=== PATIENT | female | born 1970 | race Caucasian/White ===

== ENCOUNTER 2025-02-01 16:03 | Emergency (ER) | payer BC, OTHER, SELFPAY ==
--- OUTSIDE RECORDS SUMMARY | 2014-05-06 04:39 | XMS_ITS | Continuity of Care Document ---
Author Organization [facility] Address [address] [address] [place] [address] Phone Care Team Providers Care Lab Tester Name Role Phone Link Thor PETERS Unavailable Unavailable Advance Directives Directive Yes / No Effective Date File Name No Information Encounters Encounter Description Practice Location Reason(s) For Visit Diagnoses Date Provider Providers Copied on Encounter [facility], [address] [address], [place], [place], [id number], [place] tel:[phone] [facility] No Information 4 Link MD Mcrae. [address] [facility], [facility] [address], [place], [place], [id number] , [place]. tel:[phone] Referring Provider: [place], [address] [place], [address]. tel:[phone] Family History Family Member Type Diagnosis Age At Onset No Information Payers Payer name Insurance type Covered green party ID Authoriza tion(s) No Information Social History Type Description Quantity Date Captured Comments Sex Female Smoking Status No Information Chief Complaint And Reason For Visit No Information Reason For Referral Reason For Referral No Information History Of Present Illness Encounter Date Complaint History Of Prese nt Illness No Information Functional Status Date Functional Assessmen t No Information Instructions Date Instruction Additional Infor mation No Information Assessments Type Assessment Date No Information Patient Care Teams Name Effective Dates (start - stop) Status Members No Information
--- OUTSIDE RECORDS SUMMARY | 2014-05-06 04:39 | XMS_ITS | Continuity of Care Document ---
Author Organization [facility] Address [address] [address] [place] [address] Phone Care Team Providers Care Salvage Laborer Name Role Phone Link Thor PETERS Unavailable Unavailable Advance Directives Directive Yes / No Effective Date File Name No Information Encounters Encounter Description Practice Location Reason(s) For Visit Diagnoses Date Provider Providers Copied on Encounter [facility], [address] [address], [place], [place], [id number], [place] tel:[phone] [facility] No Information 4 Link MD Mcrae. [address] [facility], [facility] [address], [place], [place], [id number] , [place]. tel:[phone] Referring Provider: [place], [address] [place], [address]. tel:[phone] Family History Family Member Type Diagnosis Age [...]
--- OUTSIDE RECORDS SUMMARY | 2025-02-01 16:05 | XMS_ITS | Encounter Summary ---
Author Organization [facility] Address [address] [place] [address] Care Team Providers Care Veneer Lathe Operator Name Role Phone Jack Romano PA-C Primary Care Provider [phone] Jack Romano PA-C Unavailable [phone] Liana Turner PA-C Unavailable [phone] Ryland Mora DO Unavailable [phone] Liana Turner PA-C Unavailable [phone] Encounter Details Date Type Department Care Team (Late st Contact Info) Description 01/25/2022 [facility] [address] [place] [address] Jack Romano PA-C [address] [place] [address] Social History Tobacco Use Types Packs/Day Years Used Date Smoking Tobacco: Light Smoker Cigarettes 0.5 4 Started: 013; Last attempted to quit: 07/13/2016 Smokeless Tobacco: Former Quit: 06/20/2012 Comments:i am using quit susan n Alcohol Use Standard Drinks/Week Comments Not Currently 0 (1 standard drink = 0.6 oz pur e alcohol) 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 Unable to assess 12/31/2021 11:31 PM CDT documented as of this encounter Miscellaneous Notes * Telephone Encounter - Araseli Santiago RN - 01/26/2022 10:30 AM CDT Answered through other Araseli Donnelly RN documented in this encounter Plan of Treatment Not on file documented as of this encounter Visit Diagnoses Not on filedocumented in this encounter Additional Health Concerns Infection Onset Date Last Indicated Resolved Time COVID-19 01/25/2022 01/26/2022 02/15/2022 11:4 1 PM CDT Assessment Noted Time PHQ-9 Depression Total Score: 0 09/15/19 22 7:02 AM CDT documented as of this encounter Care Teams Veneer Lathe Operator Relationship Specialty Start Date End Date Jack Romano PA-C [address] [facility] [address] PCP - General Physician Fruit And Vegetable Packer - Medical 07/25/18 Jack Romano PA-C 38676 [facility] [address] Assigned PCP 04/18/21 Liana Turner PA-C [address] [place] [place] [address] Physician Fruit And Vegetable Packer 07/17/24 [place] [address] [address]Z, [address] [address] Assigned Musculoskeletal Provider 08/25/24 Liana Turner PA-C [address] [place] [address] Assigned Dermatology Provider 09/25/24 documented as of this encounter
--- OUTSIDE RECORDS SUMMARY | 2025-02-01 16:05 | XMS_ITS | Encounter Summary ---
Author Organization [facility] Address [address] [place] [address] Care Team Providers Care Radius Corner Machine Operator Name Role Phone Jack Romano PA-C Primary Care Provider [phone] Jack Romano PA-C Unavailable [phone] Jack Romano-Joby Unavailable [phone] Marisol Rodriguez RN Unavailable Unavailable Jack Romano-C Unavailable [phone] Jack Romano-C Unavailable [phone] Liana Turner PA-C Unavailable [phone] Ryland Mora DO Unavailable [phone] Liana Turner PA-C Unavailable [phone] Reason for Visit * Reason Onset Date Comments Patient/info Update 10/09/2018 f/u colonosc opy Encounter Details Date Type Department Care Team (Late st Contact Info) Description 10/09/2018 [facility] Medical Advice [address], [address] [place] [address] Jack Romano PA-C [address] [place] [address] Patient/info Update (f/u colonoscopy) Social History Tobacco Use Types Packs/Day Years Used Date Smoking Tobacco: Former Cigarettes 0.5 4 0 07/13/2012 - 07/13/2016 Smokeless Tobacco: Former Quit: 06/20/2012 Comments:smokes one a day Alcohol Use Standard Drinks/Week Comments Yes 0 (1 standard drink = 0.6 oz pur e alcohol) occ PHQ-2 Answer Date Recorded PHQ-2 Score 0 06/12/2018 Comments No Sex and Gender Information Value Date Recorded Sex Assigned at Female 11/12/2020 12:43 PM CDT Legal Sex Female 3:44 AM TEST DESK TROUBLE LOCATOR Gender Identity Female 11/12/2020 12:43 PM CDT Sexual Orientation Straight 11/12/2020 12 :43 PM CDT documented as of this encounter Miscellaneous Notes * Telephone Encounter - Jennyfer Quijano RN - 11/02/2018 8:48 AM CDT PHQ-9 SCORE 03/22/2017 11/21/2017 06/15/2018 PHQ-9 Total Score - - - PHQ-9 Total Score 2 0 1 PT called completely out of medication, recent physical, labs stable, and has been without for a day. Prescription approved per [facility] Refill Protocol. Jennyfer Quijano RN documented in this encounter Plan of Treatment Not on file documented as of this encounter Visit Diagnoses Diagnosis Major depressive disorder, recurrent episode, mild documented in this encounter Additional Health Concerns Infection Onset Date Last Indicated Resolved Time COVID-19 01/25/2022 01/26/2022 02/15/2022 11:4 1 PM CDT Assessment Noted Time PHQ-9 Depression Total Score: 1 06/15/19 9:50 AM TEST DESK TROUBLE LOCATOR documented as of this encounter Care Teams Radius Corner Machine Operator Relationship Specialty Start Date End Date Jack Romano PA-C [address] [facility] [address] [address] PCP - General Physician Director Home - Medical 07/25/18 Jack Romano PA-C 49386 [facility] [address] Assigned PCP 07/29/18 12/21/19 Jack Romano PA-C 28449 [facility] [address] Assigned PCP 12/22/19 03/20/21 Marisol Rodriguez RN Personal Advocate & Liaison (PAL) Family Practice 03/13/20 06/10/20 Jack Romano PA-C 25302 [facility] [address] Assigned PCP 03/21/21 04/17/21 Jack Romano PA-C 45523 [facility] [address] Assigned PCP 04/18/21 Liana Turner PA-C [address] [place] [address] Physician Director Home 07/17/24 [place] [address] [address]WARTZ, [address] [address] Assigned Musculoskeletal Provider 08/25/24 Liana Turner PA-C [address] [place] [address] Assigned Dermatology Provider 09/25/24 documented as of this encounter
--- OUTSIDE RECORDS SUMMARY | 2025-02-01 16:05 | XMS_ITS | Encounter Summary ---
Author Organization [facility] Address [address] [place] [address] Care Team Providers Care Php Web Developer Name Role Phone Jack Romano PA-C Primary Care Provider [phone] Jack Romano PA-C Unavailable [phone] Liana Turner PA-C Unavailable [phone] Ryland Mora DO Unavailable [phone] Liana Turner PA-C Unavailable [phone] Encounter Details Date Type Department Care Team (Late st Contact Info) Description 09/13/2021 [facility] Medical Advice [address] [address] Maureen Almaguer MA Social History Tobacco Use Types Packs/Day Years [...] PM CDT 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 Gender Identity Female 11/12/2020 12:43 PM CDT Sexual Orientation Straight 11/12/2020 12 :43 PM CDT Occupation Industry Job Start Date Job End Date Not on file Not on file Not on file Not on file documented as of this encounter Plan of Treatment Not on file documented as of this encounter Visit Diagnoses Not on filedocumented in this encounter Additional Health Concerns Infection Onset Date Last Indicated Resolved Time COVID-19 01/25/2022 01/26/2022 02/15/2022 11:4 1 PM CDT Assessment Noted Time PHQ-9 Depression Total Score: 0 09/15/19 7:02 AM CDT documented as of this encounter Care Teams Php Web Developer Relationship Specialty Start Date End Date Jack Romano PA-C [address] [facility] [place] [address] PCP - General Physician Staff Air Tactical Officer - Medical 07/25/18 Jack Romano PA-C [address] [place] [address] Assigned PCP 04/18/21 Liana Turner PA-C [address] [place] [address] Physician Staff Air Tactical Officer 07/17/24 [place] [address] [address]WARTZ, [address] [address] Assigned Musculoskeletal Provider 08/25/24 Liana Turner PA-C [address] [place] [address] Assigned Dermatology Provider 09/25/24 documented as of this encounter
--- OUTSIDE RECORDS SUMMARY | 2025-02-01 16:05 | XMS_ITS | Encounter Summary ---
Author Organization [facility] Address [address] [place] [address] Care Team Providers Care Wrapper Layer Name Role Phone Jack Romano PA-C Primary Care Provider [phone] Jack Romano PA-C Unavailable [phone] Jack Romano PA-C Unavailable [phone] Marisol Rodriguez RN Unavailable Unavailable Jack Romano PA-C Unavailable [phone] Jack Romano PA-C Unavailable [phone] Liana Turner PA-C Unavailable [phone] Ryland Mora DO Unavailable [phone] Liana Turner PA-C Unavailable [phone] Encounter Details Date Type Department Care Team (Late st Contact Info) Description 03/22/2019 [facility] Medical Advice [facility] Centralized Scheduling [address] [place] [address] Anna Kaufman Social History Tobacco Use Types Packs/Day Years [...] PM CDT Legal Sex Female 3:44 AM INTERNET DATABASE SPECIALIST Gender Identity Female 11/12/2020 12:43 PM CDT [...] Depression Total Score: 1 06/15/19 9:50 AM INTERNET DATABASE SPECIALIST documented as of this encounter Care Teams Wrapper Layer Relationship Specialty Start Date End Date Jack Romano PA-C [address] [facility] [address] PCP - General Physician Leadite Man - Medical 07/25/18 Jack Romano PA-C 02296 [facility] [id number] Assigned PCP 07/29/18 12/21/19 Jack Romano PA-C 81353 [facility] [address] Assigned PCP 12/22/19 03/20/21 Marisol Rodriguez, SERVANDO Personal Advocate & Liaison (PAL) Family Practice 03/13/20 06/10/20 Jack Romano PA-C 58117 [facility] [address] Assigned PCP 03/21/21 04/17/21 Jack Romano PA-C [address] [place] [address] Assigned PCP 04/18/21 Liana Turner PA-C [address] [place] [address] Physician Leadite Man 07/17/24 [place] [address] [address]WARTZ, [address] [address] Assigned Musculoskeletal Provider 08/25/24 Liana Turner PA-C [address] [place] [address] Assigned Dermatology Provider 09/25/24 documented as of this encounter
--- OUTSIDE RECORDS SUMMARY | 2025-02-01 16:05 | XMS_ITS | Encounter Summary ---
Author Organization [facility] Address [address] [place] [address] Care Team Providers Care Hostel Parent Name Role Phone Jack Romano PA-C Primary Care Provider [phone] Jack Romano PA-C Unavailable [phone] Jack Romano PA-C Unavailable [phone] Marisol Rodriguez RN Unavailable Unavailable Jack Romano-C Unavailable [phone] Jack RomnaoC Unavailable [phone] Liana Turner PA-C Unavailable [phone] Ryland Mora DO Unavailable [phone] Liana Turner PA-C Unavailable [phone] Encounter Details Date Type Department Care Team (Late st Contact Info) Description 12/24/2018 [facility] Medical Advice [address], [address] [place] [address] Jack Romano PA-C [address] [place] [address] Social History Tobacco Use Types [...] PM CDT 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 Gender Identity Female 11/12/2020 12:43 PM CDT Sexual Orientation Straight 11/12/2020 12 :43 PM CDT documented as of this encounter Plan of Treatment Not on file documented as of this encounter Visit Diagnoses Not on filedocumented in this encounter Additional Health Concerns Infection Onset Date Last Indicated Resolved Time COVID-19 01/25/2022 01/26/2022 02/15/2022 11:4 1 PM CDT Assessment Noted Time PHQ-9 Depression Total Score: 1 06/15/19 9:50 AM FRONT DESK SPECIALIST documented as of this encounter Care Teams Hostel Parent Relationship Specialty Start Date End Date Jack Romano PA-C [address] [facility] [address] PCP - General Physician Chuck Splitter - Medical 07/25/18 Jack Romano PA-C 15173 [facility] [address] Assigned PCP 07/29/18 12/21/19 Jack Romano PA-C 50287 [facility] [address] Assigned PCP 12/22/19 03/20/21 Marisol Rodriguez, SERVANDO Personal Advocate & Liaison (PAL) Family Practice 03/13/20 06/10/20 Jack Romano PA-C 77037 [facility] [address] Assigned PCP 03/21/21 04/17/21 Jack Romano PA-C [address] [place] [address] Assigned PCP 04/18/21 Liana Turner PA-C [address] [place] [address] Physician Chuck Splitter 07/17/24 [place] [address] [address]WARTZ, [address] [address] Assigned Musculoskeletal Provider 08/25/24 Liana Turner PA-C [address] [place] [address] Assigned Dermatology Provider 09/25/24 documented as of this encounter
--- OUTSIDE RECORDS SUMMARY | 2025-02-01 16:05 | XMS_ITS | Encounter Summary ---
Author Organization [facility] Address [address] [place] [address] Care Team Providers Care Shoe Turner Name Role Phone Jack Romano PA-C Primary Care Provider [phone] Jack Romano PA-C Unavailable [phone] Jack Romano PA-C Unavailable [phone] Marisol Rodriguez RN Unavailable Unavailable Jack Romano PA-C Unavailable [phone] Jack Romano PA-C Unavailable [phone] Liana Turner-C Unavailable [phone] Ryland Mora DO Unavailable [phone] Liana Turner-C Unavailable [phone] Reason for Visit * Reason Onset Date Comments Medication Request 03/11/2019 Increase Tiza nidine Encounter Details Date Type Department Care Team (Late st Contact Info) Description 03/11/2019 [facility] Medical [address], [address] [place] [address] Jack Romano PA-C [address] [place] [address] Medication Request (Increase Tizanidine) Social History Tobacco Use Types Packs/Day Years [...] PM CDT 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 documented in this encounter Plan of Treatment Not on file documented as of this encounter Visit Diagnoses Diagnosis Back muscle spasm- Primary Other symptoms referable to back documented in this encounter Additional Health Concerns Infection Onset Date Last Indicated Resolved Time COVID-19 01/25/2022 01/26/2022 02/15/2022 11:4 1 PM CDT Assessment Noted Time PHQ-9 Depression Total Score: 1 06/15/19 19 9:50 AM BUILDING CUSTODIAN documented as of this encounter Care Teams Shoe Turner Relationship Specialty Start Date End Date Jack Romano PA-C [address] [facility] [address] [address] [address] PCP - General Physician Conservator Artifacts - Medical 07/25/18 Jack Romano PA-C 21929 [facility] [address] Assigned PCP 07/29/18 12/21/19 Jack Romano PA-C [address] [address] [facility]EL[facility] [address] Assigned PCP 12/22/19 03/20/21 Marisol Rodriguez, RN Personal Advocate & Liaison (PAL) Family Practice 03/13/20 06/10/20 Jack Romano PA-C 71725 [facility] [address] Assigned PCP 03/21/21 04/17/21 Jack Romano PA-C 54991 [facility] [address] [address] Assigned PCP 04/18/21 Liana Turner PA-C [address] [place] [address] Physician Conservator Artifacts 07/17/24 [place] [address] [address]WARTZ, [address] [address] Assigned Musculoskeletal Provider 08/25/24 Liana Turner PA-C [address] [place] [address] Assigned Dermatology Provider 09/25/24 documented as of this encounter
--- OUTSIDE RECORDS SUMMARY | 2025-02-01 16:05 | XMS_ITS | Clinical Summary ---
Author Organization [facility] Address [address] [place] [address] Care Team Providers Care Turbine Engineer Name Role Phone Unavailable Primary Care Provider Unavailabl e Source Comments You are receiving this document as you are listed as the primary care provider,follow-up provider, or the patient has been referred to you for consultation.This is in compliance with the Medicare and[facility] EHR Incentive Program,which states Providers who transition their patient to another setting of careor provider of care or refers their patient to another provider of care shouldprovide summary care record for each transition of care or referral. [employer] Allergies Active Allergy Reactions Criticality Noted Date Comments Acetaminophen-Codeine Other, see comments 02/03 Morphine Other, see comments 06/14/2019 Burning sensation in abdomen Penicillins Hives 02/07/2010 Penicillins Hives High 06/14/2019 Medications Multiple Vitamin (MULTI-VITAMIN OR) Take by mouth. 3 Active naproxen sodium (AKA ANAPROX) 550 MG tablet Take 1 tablet by mouth 2 times daily (with meals). 30 tablet 0 4 Active Additional Information Patient not taking.Reported on 04/10/2020 MULTIPLE VITAMIN OR Active citalopram (CELEXA) 40 MG tablet Take 1 Tablet (40 mg) by mouth daily. Active cyclobenzaprine (FLEXERIL) 5 MG tabletIndicatio ns:RLQ abdominal pain Take 1-2 Tablets by mouth three times a day as needed for Muscle Spasms. 30 Tablet 0 Active Additional Information Patient not taking.Reported on 04/10/2020 cholecalciferol (VITAMIN D3) 1.25 MG (79501 UT) capsule Take 1 Capsule (50,000 Units) by mouth. 0 Active hydrOXYzine HCl (ATARAX) 25 MG tablet 0 Active tiZANidine (ZANAFLEX) 4 MG tablet Take 2 Tablets (8 mg) by mouth. 0 Active traZODone (DESYREL) 50 MG tablet Take 1 Tablet (50 mg) by mouth daily at bedtime. at bedtime 0 Active methylPREDNISol one (MEDROL 21 TABLET DOSEPACK) 4 MG tablet Follow package directions 21 Tablet 2 Active Additional Information Patient not taking.Reported on 03/21/2023 lisinopril (ZESTRIL) 20 MG tablet Take 1 Tablet (20 mg) by mouth. 1 Active methocarbamol (ROBAXIN) 500 MG tablet 1-2 tabs TID PRN for spasm/pain 24 Tablet 3 Active Active Problems Problem Noted Date Diagnosed Date Heart murmur 05/18/2022 Benign essential hypertension 03/31/2021 S/P appendectomy 03/31/2021 S/P gastric bypass 03/31/2021 S/P hysterectomy 03/31/2021 Internal hemorrhoid 08/16/2018 Major depressive disorder, recurrent episode, mi ld 03/27/2015 Over weight 12/19/2012 Thoracic back pain 12/19/2012 Thoracic disc herniation 08/21/2012 Anxiety 02/03/2006 Overview (03/21/2023): Problem list name updated by automated process. Provider to review Mixed hyperlipidemia 09/16/2005 Endometriosis 11/09/2002 Overview (01/25/2017): Endometriosis NOS Immunizations Immunization Administration Dates Next Due TDAP (BOOSTRIX) 12/19/2012 Family History Medical History Relation Name Comments High Blood Pressure Father Diabetes Maternal Grandfather High Blood Pressure Maternal Grandfather Diabetes Paternal Grandfather High Blood Pressure Paternal Grandfather Cancer Paternal Grandmother Relation Name Status Comments Father Alive Mother Alive Brother 1 Alive Brother 2 Alive Maternal Grandfather Paternal Grandfather Paternal Grandmother Sister 1 Alive Sister 2 Alive Social History Tobacco Use Types Packs/Day Years Used Date Smoking Tobacco: Some Days Smokeless Tobacco: Never Tobacco Cessation:Ready to Q uit: Not Asked; Counseling Given: Not Answered Comments:Smoking History Packs/day: Alcohol Use Standard Drinks/Week Comments Yes 0 (1 standard drink = 0.6 oz pur e alcohol) occ Comments No Sex and Gender Information Value Date Recorded Sex Assigned at Not on file Legal Sex Female 1:22 PM CDT Gender Identity Not on file Sexual Orientation Not on file 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 Not on file Not on file Last Filed Vital Signs Vital Sign Reading Time Taken Comments Blood Pressure 185/108 03/21/2023 4:56 PM CDT Pulse 69 03/21/2023 4:56 PM CDT Temperature 37 C (98.6 F) 03/21/2023 4:56 PM CDT Respiratory Rate 15 03/21/2023 4:56 PM CDT Oxygen Saturation 100% 03/21/2023 4:56 PM CDT Inhaled Oxygen Concentration - - Weight 72.1 kg (159 lb) 04/10/2020 3:45 PM PLATE FORMER Height 152.4 cm (5') 04/10/2020 3:45 PM PLATE FORMER Body Mass Index 31.05 04/10/2020 3:45 PM PLATE FORMER Plan of Treatment Health Maintenance Due Date Last Done Comments Colon Cancer Screening Plan Due 1972 Hep C Screening (Preventive Services) 1972 Mammogram 1972 HIV Screening (Preventive Services) 1988 Adult Preventive Visit 1990 HepB Vaccine (1) 08/21/1991 Pneumococcal Vaccine 50+ Yrs (1 of 2 - PCV) 08/21/1991 Cervical Cancer Screening Due 12/20/2012 12/19/2012 Cholesterol 12/19/2017 12/19/2012 Zoster/Shingles Vaccine (1 of 2) 2022 COVID-19 Vaccine ( season) 2024 06/14/2022, 04/14/2021, 09/10/2020 Influenza Vaccine (#1) 2025 2, 03/31/2021, 02/15/2020, Additional history exists DTaP/Tdap/Td Vaccine (4 - Tdap) 11/10/2026 11/10/2016, 12/19/2012, 09/16/2005 HepA Vaccine Aged Out No longer eligi ble based on patient's age to complete this topic Hib Vaccine Aged Out No longer eligi ble based on patient's age to complete this topic IPV (Polio) Vaccine Aged Out No longe r eligible based on patient's age to complete this topic MCV4 Vaccine Aged Out No longer eligi ble based on patient's age to complete this topic Meningococcal B Vaccine Aged Out No l onger eligible based on patient's age to complete this topic Procedures Procedure Name Priority Date/Time Associated Diagnosis Comments LIPID PANEL & DIRECT LDL (IF NEEDED) Routine 12/19/2012 9:47 AM CDT Routine physical examination ANATOMICAL PATH LIQUID BASED Routine 12/19/2012 9:23 AM CDT from Last 3 Months or Most Recently Relevant to Health Maintenance Results * Lipid Panel and Direct LDL(If Needed) (12/19/2012 9:47 AM CDT) Cholesterol 199 0 - 200 mg/dL HP CONVERSION Triglycerides 134 0 - 149 mg/dL HP CONVERSION HDL Cholesterol 66 >39 mg/dL HP CONVERSION Cholesterol/HDL Ratio Screen 3.0 HP CONVERSION LDL Calculated 106 19 - 130 mg/dL HP CONVERSION Hours Fasting 10 HP CONVERSION 12/19/2012 9:47 AM CDT 12/19/2012 10:38 AM CDT Narrative HP CONVERSION - 12/19/2012 11:02 AM CDT Performed at [facility], [address] [place] [address] us Christie Arango MD LAB_1 Final Result HP CONVERSION * Pap Smear (12/19/2012 9:23 AM CDT) 12/19/2012 9:23 AM CDT Narrative HP CONVERSION - 12/25/2012 2:00 PM CDT FINAL GYNECOLOGICAL CYTOLOGY REPORT Pathology #: [id number] Date Obtained: 12/19/2012 Date Received: 12/20/2012 INTERPRETATION/RESULTS: Negative for Intraepithelial Lesion or Malignancy SPECIMEN ADEQUACY: Satisfactory for Evaluation. No endocervical cells/transformation zone component present. Verified on 12/25/2012 by RAMONA PEDROZA(ASCP) (electronic signature) CLINICAL NOTES: LMP: Not Stated LIQUID BASED PAP SMEAR SPECIMEN TYPE: CERVICAL WITH REFLEX TO HPV IF ASCUS PLEASE NOTE: The pap smear is a screening test designed to aid in the detection of cervical cancer and its precursor lesions. It is not a diagnostic procedure and should not be used as the sole means of detecting cervical cancer. Both false-positive and false-negative reports may occur. End of Report Christie Arango MD LAB_1 Final Result HP CONVERSION from Last 3 Months or Most Recently Relevant to Health Maintenance Insurance [facility]
--- OUTSIDE RECORDS SUMMARY | 2025-02-01 16:05 | XMS_ITS | Encounter Summary ---
Author Organization [facility] Address [address] [facility] [place] [address] Care Team Providers Care Engraver Apprentice Decorative Name Role Phone Jack Romano PA-C Primary Care Provider [phone] Jack Romano PA-C Unavailable [phone] Liana Turner PA-C Unavailable [phone] Abby Ryland DO Unavailable [phone] Liana Turner PA-C Unavailable [phone] Reason for Visit * Reason Onset Date Comments Refill Request 07/12/2021 Encounter Details Date Type Department Care Team (Late st Contact Info) Description 07/12/2021 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 PHQ-2 Answer Date Recorded PHQ-2 Score 0 05/27/2021 Comments No Sex and Gender Information Value Date Recorded Sex Assigned at Female 11/12/2020 12:43 PM CDT Legal Sex Female 3:44 AM RETAIL MAINTENANCE TECHNICIAN Gender Identity Female 11/12/2020 12:43 PM CDT Sexual Orientation Straight 11/12/2020 12 :43 PM CDT Occupation Industry Job Start Date Job End Date Not on file Not on file Not on file Not on file documented as of this encounter Miscellaneous Notes * Telephone Encounter - Annabelle Ng RN - 07/12/2021 12:37 PM CST Outpatient Medication Detail Disp Refills Start End ANAI tiZANidine (ZANAFLEX) 4 MG tablet 270 tablet 1 07/12/2021 No Sig: TAKE 1 TABLET(4 MG) BY MOUTH THREE TIMES DAILY Sent to pharmacy as: tiZANidine HCl 4 MG Oral Tablet (ZANAFLEX) Class: E-Prescribe Order: [id number] E-Prescribing Status: Receipt confirmed by pharmacy (07/12/2021 11:58 AM RETAIL MAINTENANCE TECHNICIAN) Vito [place] MAINTENANCE TECHNICIAN documented in this encounter Plan of Treatment Not on file documented as of this encounter Visit Diagnoses Not on filedocumented in this encounter Additional Health Concerns Infection Onset Date Last Indicated Resolved Time COVID-19 01/25/2022 01/26/2022 02/15/2022 11:4 1 PM CDT Assessment Noted Time PHQ-9 Depression Total Score: 0 03/31/20 21 12:00 PM CDT documented as of this encounter Care Teams Engraver Apprentice Decorative Relationship Specialty Start Date End Date Jack Romano PA-C [address] [address] [place] [address] PCP - General Physician Disc Jockey - Medical 07/25/18 Jack Romano PA-C [address] [place] [address] Assigned PCP 04/18/21 Liana Turner PA-C [address] [place] [address] Physician Disc Jockey 07/17/24 [place] [address] [facility], [address] [address] Assigned Musculoskeletal Provider 08/25/24 Liana Turner PA-C [address] [place] [address] Assigned Dermatology Provider 09/25/24 documented as of this encounter
--- OUTSIDE RECORDS SUMMARY | 2025-02-01 16:05 | XMS_ITS | Encounter Summary ---
Author Organization [facility] Address [address] [place] [address] Care Team Providers Care Client Relations Specialist Name Role Phone Jack Romano PA-C Primary Care Provider [phone] Jack Romano PA-C Unavailable [phone] Jack Romano PA-C Unavailable [phone] Marisol Rodriguez RN Unavailable Unavailable Jack Romano PA-C Unavailable [phone] Jack Romano PA-C Unavailable [phone] Liana Turner PA-C Unavailable [phone] Ryland Mora DO Unavailable [phone] Liana Turner PA-C Unavailable [phone] Encounter Details Date Type Department Care Team (Late st Contact Info) Description 03/05/2019 [facility] [address] [facility] [place] [address] Cain Orellana MD [facility] [address] [place] [address] [address] [place] [address] Other iron deficiency anemia (Primary Dx) Social History Tobacco Use Types Packs/Day Years [...] PM CDT Legal Sex Female 3:44 AM CHLORINATOR OPERATOR Gender Identity Female 11/12/2020 12:43 PM CDT Sexual Orientation Straight 11/12/2020 12 :43 PM CDT Occupation Industry Job Start Date Job End Date Not on file Not on file Not on file Not on file documented as of this encounter Plan of Treatment Not on file documented as of this encounter Results * Iron and iron binding capacity (03/05/2019 11:46 AM CDT) Iron 92 35 - 180 ug/dL 03/05/2019 8:21 PM CDT [facility] Iron Binding Cap 335 240 - 430 ug/dL 03/05/2019 8:28 PM CDT [facility] Iron Saturation Index 27 15 - 46 % 03/05/2019 8:28 PM CDT [facility] Blood specimen (specimen) 03/05/2019 11:46 AM CDT 03/05/2019 11:47 AM CDT Cain Orellana MD LAB - BLOOD ORDERABLES Final Res ult Performing Organization Address [facility]/State/ZIP Co de Phone Number [facility] [address] [place] [address] * Ferritin (03/05/2019 11:46 AM CDT) Ferritin 148 8 - 252 ng/mL 03/05/2019 8:29 PM CDT [facility] Blood specimen (specimen) 03/05/2019 11:46 AM CDT 03/05/2019 11:47 AM CDT Cain Orellana MD LAB - BLOOD ORDERABLES Final Res ult [facility] [address] [place] [address] * CBC with platelets and differential (03/05/2019 11:46 AM CDT) WBC 7.4 4.0 - 11.0 10e9/L 03/05/2019 12:22 PM CDT [facility] RBC Count 4.36 3.8 - 5.2 10e12/L 03/05/2019 12:22 PM CDT [facility] Hemoglobin 14.0 11.7 - 15.7 g/dL 03/05/2019 12:22 PM CDT [facility] Hematocrit 43.5 35.0 - 47.0 % 03/05/2019 12:22 PM T [facility] MCV 100 78 - 100 fl 03/05/2019 12:22 PM CDT [facility] MCH 32.1 26.5 - 33.0 pg 03/05/2019 12:22 PM CDT [facility] MCHC 32.2 31.5 - 36.5 g/dL 03/05/2019 12:22 PM CDT [facility] RDW 12.3 10.0 - 15.0 % 03/05/2019 12:22 PM T [facility] Platelet Count 251 150 - 450 10e9/L 03/05/2019 12:22 PM T [facility] % Neutrophils 61.9 % 03/05/2019 12:22 PM CDT [facility] % Lymphocytes 26.3 % 03/05/2019 12:22 PM CDT [facility] % Monocytes 6.9 % 03/05/2019 12:22 PM CDT [facility] % Eosinophils 4.5 % 03/05/2019 12:22 PM CDT [facility] % Basophils 0.4 % 03/05/2019 12:22 PM CDT [facility] Absolute Neutrophil 4.6 1.6 - 8.3 10e9/L 03/05/2019 12:22 PM CDT [facility] Absolute Lymphocytes 1.9 0.8 - 5.3 10e9/L 03/05/2019 12:22 PM CDT [facility] Absolute Monocytes 0.5 0.0 - 1.3 10e9/L 03/05/2019 12:22 PM CDT [facility] Absolute Eosinophils 0.3 0.0 - 0.7 10e9/L 03/05/2019 12:22 PM CDT [facility] Absolute Basophils 0.0 0.0 - 0.2 10e9/L 03/05/2019 12:22 PM CDT [facility] Diff Method Automated Method 03/05/2019 12:22 PM CDT [facility] Blood specimen (specimen) 03/05/2019 11:46 AM CDT 03/05/2019 11:47 AM CDT us Cain Orellana MD LAB - BLOOD ORDERABLES Final Res ult Performing Organization Address City/State/[facility] Co de Phone Number [facility] [address] [facility] [place] [address] documented in this encounter Visit Diagnoses Diagnosis Other iron deficiency anemia- Primary documented in this encounter Additional Health Concerns Infection Onset Date Last Indicated Resolved Time COVID-19 01/25/2022 01/26/2022 02/15/2022 11:4 1 PM CDT Assessment Noted Time PHQ-9 Depression Total Score: 1 06/15/19 19 9:50 AM CHLORINATOR OPERATOR documented as of this encounter Care Teams Client Relations Specialist Relationship Specialty Start Date End Date Jack Romano PA-C [address] [place] [place] [address] PCP - General Physician Monument Stonecutter - Medical 07/25/18 Jcak Romano PA-C [address] [place] [address] Assigned PCP 07/29/18 12/21/19 Jack Romano PA-C [address] [place] [address] Assigned PCP 12/22/19 03/20/21 Marisol Rodriguez, RN Personal Advocate & Liaison (PAL) Family Practice 03/13/20 06/10/20 Jack Romano PA-C [address] [address] [facility] [address] Assigned PCP 03/21/21 04/17/21 Jack Romano PA-C [address] [facility] [address] Assigned PCP 04/18/21 Liana Turner PA-C [address] [place] [address] Physician Monument Stonecutter 07/17/24 [place] [address] [facility], [address] [address] Assigned Musculoskeletal Provider 08/25/24 Liana Turner PA-C [address] [place] [address] Assigned Dermatology Provider 09/25/24 documented as of this encounter
--- OUTSIDE RECORDS SUMMARY | 2025-02-01 16:05 | XMS_ITS | Encounter Summary ---
Author Organization [facility] Address [address] [place] [address] Care Team Providers Care Advisor Advocate Angel Co Founder Name Role Phone Jack Romano PA-C Primary Care Provider [phone] Jack Romano PA-C Unavailable [phone] Liana Turner PA-C Unavailable [phone] Ryland Mora DO Unavailable [phone] Liana Turner PA-C Unavailable [phone] Encounter Details Date Type Department Care Team (Late st Contact Info) Description 02/15/2022 [facility] Medical Advice [address] [address] Araseli Santiago RN Social History Tobacco Use Types Packs/Day Years Used Date Smoking Tobacco: Light Smoker Cigarettes 0.5 4 Started: 013; Last attempted to quit: 07/13/2016 Smokeless Tobacco: Former Quit: 06/20/2012 Comments:i am using quit susan n Alcohol Use Standard Drinks/Week Comments Not Currently 0 (1 standard drink = 0.6 oz pur e alcohol) 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 PHQ-2 Answer Date Recorded PHQ-2 Score 0 02/15/2022 Comments No Sex and Gender Information Value Date Recorded Sex Assigned at Female 11/12/2020 12:43 PM CDT 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 Gender Identity Female 11/12/2020 12:43 PM CDT [...] Noted Time PHQ-9 Depression Total Score: 0 02/16/20 2:09 PM CDT documented as of this encounter Care Teams Advisor Advocate Angel Co Founder Relationship Specialty Start Date End Date Jack Romano PA-C [address] [facility] [address] PCP - General Physician Dramatic Coach - Medical 07/25/18 Jack Romano PA-C [address] [place] [address] Assigned PCP 04/18/21 Liana Turner PA-C [address] [place] [address] Physician Dramatic Coach 07/17/24 [place] [address] [address] [address] Assigned Musculoskeletal Provider 08/25/24 Liana Turner PA-C [address] [place] [address] Assigned Dermatology Provider 09/25/24 documented as of this encounter
--- OUTSIDE RECORDS SUMMARY | 2025-02-01 16:05 | XMS_ITS | Encounter Summary ---
Author Organization [facility] Address [address] [place] [address] Care Team Providers Care Medical Imaging Director Name Role Phone Edson Patel MD Primary Care Provider [phone] Dolores Charles-C Primary Care Pr ovider [facility] Primary Care Provide r Brit Stovall LEAD PRESSER Unavailable [phone] Jack Romano PA-C Primary Care Provider [phone] Brit Stovall LEAD PRESSER Unavailable [phone] Jack Romano PA-C Unavailable [phone] Jack Romano PA-C Unavailable + Marisol Rodriguez RN Unavailable Unavailable Jack Romano-C Unavailable [phone] Jack RomanoC Unavailable [phone] Liana Turner-Joby Unavailable [phone] Ryland Mora DO Unavailable [phone] Liana Turner-C Unavailable [phone] Encounter Details Date Type Department Care Team (Late st Contact Info) Description 07/10/2012 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 Gender Identity Female 11/12/2020 12:43 PM CDT Sexual Orientation Straight 11/12/2020 12 :43 PM CDT documented as of this encounter Plan of Treatment Not on file documented as of this encounter Visit Diagnoses Not on filedocumented in this encounter Additional Health Concerns Infection Onset Date Last Indicated Resolved Time COVID-19 01/25/2022 01/26/2022 02/15/2022 11:4 1 PM CDT documented as of this encounter Care Teams Medical Imaging Director Relationship Specialty Start Date End Date Edson Patel MD PCP - General Family Practice 07/17/11 08/13/13 Dolores Charles PA-C [address] [place] [address] PCP - General Physician Wood Machine Carver 08/14/13 04/09/18 [facility] [address] [address] [place], [place] [id number] PCP - General 04/10/18 07/24/18 Brit Stovall LEAD PRESSER [place] [address] [place] [address] PCP - Assigned PCP 10/16/16 08/07/18 Jack Romano PA-C [address] [place] [address] PCP - General Physician Wood Machine Carver - Medical 07/25/18 Brit Stovall, LEAD PRESSER [address] [place] [address] Assigned PCP 10/16/16 08/18/18 Jack Romano PA-C [address] [place] [address] Assigned PCP 07/29/18 12/21/19 Jack Romano PA-C [address] [place] [address] Assigned PCP 12/22/19 03/20/21 Marisol Rodriguez, RN Personal Advocate & Liaison (PAL) Family Practice 03/13/20 06/10/20 Jack Romano PA-C [address] [place] [address] Assigned PCP 03/21/21 04/17/21 Jack Romano PA-C [address] [place] [address] Assigned PCP 04/18/21 Liana Turner PA-C [address] [place] [address] Physician Wood Machine Carver 07/17/24 [place] [address] [place] , [address] [address] Assigned Musculoskeletal Provider 08/25/24 Liana Turner PA-C [address] [address] Assigned Dermatology Provider 09/25/24 documented as of this encounter
--- OUTSIDE RECORDS SUMMARY | 2025-02-01 16:06 | XMS_ITS | Clinical Summary ---
Author Organization [facility] Address [address] [place] [address] Care Team Providers Care Development And Planning Engineer Name Role Phone Jack Romano PA-C Primary Care Provider [phone] Jack Romano PA-C Unavailable [phone] Liana Turner PA-C Unavailable [phone] AbbyRyland sheridan Unavailable Liana Turenr PA-C Unavailable [phone] Allergies Active Allergy Reactions Criticality Noted Date Comments Acetaminophen-Codeine Other (See Comments) 06/2014 Adhesive Tape Rash Low 07/25/2018 Codeine 03/31/2021 Burning in stomach and hives Morphine Other (See Comments) 06/14/2019 Burning sensation in abdomen Penicillins Hives,Shortness Of Breath High 03/03/2004 Lungs fill with fluid Medications DAILY MULTI VITAMIN/MINERALS OR TABS 1 TABLET DAILY Active lidocaine (XYLOCAINE) 2 % external gelIndications:Vag inal pain Apply topically 2 times daily 30 mL 1 2 Active tiZANidine (ZANAFLEX) 4 MG tabletIndications: Back muscle spasm TAKE ONE TABLET BY MOUTH THREE TIMES A DAY 270 tablet 1 4 Active citalopram (CELEXA) 40 MG tabletIndications: Major depressive disorder, recurrent episode, mild Take 1 tablet (40 mg) by mouth daily. 90 tablet 3 5 Active valACYclovir (VALTREX) 500 MG tabletIndications: Herpes simplex virus infection Take 1 tablet (500 mg) by mouth every morning. 90 tablet 3 5 Active acyclovir (ZOVIRAX) 5 % external ointmentIndication s:Herpes simplex virus infection Apply topically 5 times daily. Profile Rx: patient will contact pharmacy when needed 30 g 5 Active lidocaine (XYLOCAINE) 5 % external ointmentIndication s:Herpes simplex virus infection Apply topically as needed for moderate pain. 50 g 1 5 Active traZODone (DESYREL) 50 MG tabletIndications: Insomnia, unspecified type Take 1 tablet (50 mg) by mouth at bedtime. 90 tablet 5 Active lisinopril (ZESTRIL) 20 MG tabletIndications: Benign essential hypertension TAKE ONE TABLET BY MOUTH EVERY MORNING 90 tablet 1 5 Active diclofenac (VOLTAREN) 75 MG EC tabletIndications: Cervical radiculopathy Take 1 tablet (75 mg) by mouth 2 times daily. 20 tablet 5 Active predniSONE (DELTASONE) 20 MG tabletIndications: Lumbar pain Take 3 tabs by mouth daily x 3 days, then 2 tabs daily x 3 days, then 1 tab daily x 3 days, then 1/2 tab daily x 3 days. 20 tablet 5 Active cyclobenzaprine (FLEXERIL) 10 MG tabletIndications: Back muscle spasm Take 0.5-1 tablets (5-10 mg) by mouth 3 times daily as needed for muscle spasms. 30 tablet 5 Active Active Problems Problem Noted Date Diagnosed Date FH: ovarian cancer in first degree relative 06/07 Postmenopause 07/04/2023 Heart murmur 05/18/2022 Carpal tunnel syndrome 03/31/2021 History of colonoscopy 03/31/2021 Benign essential hypertension 03/31/2021 Lumbar strain 03/31/2021 S/P appendectomy 03/31/2021 S/P hysterectomy 03/31/2021 S/P gastric bypass 03/31/2021 Insomnia, unspecified type 10/02/2019 Internal hemorrhoid 08/16/2018 Iron deficiency anemia, unsp ecified iron deficiency anemia type 08/16/2018 Major depressive disorder, recurrent episode, mi ld 03/27/2015 Colitis 04/28/2014 Overweight 12/19/2012 Thoracic disc herniation 08/21/2012 Thoracic radiculopathy 08/21/2012 CARDIOVASCULAR SCREENING; LDL GOAL LESS THAN 160 09/13/2010 Bariatric surgery status 08/01/2007 Anxiety 02/03/2006 Overview (03/05/2015): Problem list name updated by automated process. Provider to review Mixed hyperlipidemia 09/16/2005 Endometriosis 11/09/2002 Overview (03/31/2021): Endometriosis NOS Resolved Problems Problem Noted Date Diagnosed Date Resolved Date Mild major depression 09/17/20122014 Pain in thoracic spine 09/05/201210/10 Encounters Date Type Department Care Team Description 01/09/[address] [facility] [address] [place] [address] Yokasta Moser 01/09/[address] [facility] [address] [place] [address] Jack Romano PA-C 12/17/2024 11:00 AM CDT Office Visit [facility] [address] [facility] [address] [place] [address] Joseph Khan MD Back muscle spasm 12/17/2024 9:00 AM CDT E[facility] [address] [place] [address] Jack Romano PA-C Back Pain (Entered automatically based on ... 12/17/2024 Travel 12/12/2024 1:00 PM CDT Virtual Visit [facility] [address] [address] Yi Briggs PA-C Cervical radiculopathy (Primary Dx) 12/03/2024 Refill [facility] [address] [place] [phone] Jack Romano PA-C Medication Refill 12/03/2024 Refill [facility] [address] [place] [phone] Nellie Mai, MENTAL HEALTH UNIT LEAD PSYCHOLOGIST MUNITIONS HANDLER SUPERVISOR Medication Refill from Last 3 Months Immunizations Immunization Administration Dates Next Due COVID-19 Monovalent 18+ (Moderna) 04/14/2021 Influenza (IIV3) PF 04/01/2012 Influenza Vaccine (Flucelvax Quadrivalent) 02/17/2022 Influenza Vaccine >6 months,quad, PF ,02/17/2022,03/31/2021,2019,02/08/2019,07/25/2018,04/26/2017,0 02/25/2016 TD,PF 7+ (Tenivac) 09/16/2005,09/27/2001, 994 TDAP (Adacel,Boostrix) 09/16/2005 TDAP Vaccine (Adacel) 11/10/2016 TDAP Vaccine (Boostrix) 12/19/2012 Family History Medical History Relation Comments Cerebrovascular Disease Father Diabetes Father Hypertension Father Diabetes Maternal Grandfather Heart Disease Maternal Grandmother heart attac k Hypertension Maternal Grandmother Cancer Mother cervical cancer Family History Negative Mother Other Cancer Mother Ovarian Diabetes Paternal Grandfather Heart Disease Paternal Grandfather heart attac k Cancer Paternal Grandmother brain cance r Relation Status Comments Brother 1 Alive Brother 2 Alive Father Alive Maternal Grandfather Maternal Grandmother Mother Alive Paternal Grandfather Paternal Grandmother Sister 1 Alive Sister 2 Alive Social History Tobacco Use Types Packs/Day Years Used Date Smoking Tobacco: Former Cigarettes 0.5 26.1 0 06/05/1990 - 07/13/2016 Other Passive Smoke Exposure: Never Smokeless Tobacco: Former Quit: 06/20/2012 Tobacco Cessation:Counseling Given: Not Answered Comments:i am using quit plan Alcohol Use Standard Drinks/Week Comments Not Currently 0 (1 standard drink = 0.6 oz pur e alcohol) 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 Patient declined 07/08/2024 Attends Taoism Services Not on file 07/08 Active Member of Clubs or Organizations Not on f ile 07/08/2024 Attends Club or Organization Meetings Not on jessica e 07/08/2024 Marital Status Not on file 07/08/2024 PHQ-2 Answer Date Recorded PHQ-2 Score 0 12/17/2024 [facility] - Occupational Stress Questionnaire Answer Date Recorded Do you feel stress - tense, restless, nervous, or anxious, or unable to sleep at night because your mind is troubled all the time - these days? Not at all 07/08/2024 Exercise Vital Sign Answer Date Recorde d On average, how many days pe r week do you engage in moderate to strenuous exercise (like a brisk walk)? 2 days 07/08/2024 On average, how many minutes do you engage in exercise at this level? 20 min 07/08/2024 Adolescent Education Answer Date Record ed Getting School Help Needed Not on file 02/24 Food Insecurity Answer Date Recorded Within the past 12 months, d id you worry that your food would run out before you got money to buy more? No 07/08/2024 Within the past 12 months, d id the food you bought just not last and you didn t have money to get more? No 07/08/2024 Housing Stability Answer Date Recorded Do you have housing? (Cole g is defined as stable permanent housing and does not include staying outside in a car, in a tent, in an abandoned building, in an overnight alf, or couch-surfing.) Yes 07/08/2024 Are you worried about losing your housing? No 07/08/2024 Financial Resource Strain Answer Date R ecorded Within the past 12 months, h ave you or your family members you live with been unable to get utilities (heat, electricity) when it was really needed? No 07/08/2024 Transportation Needs Answer Date Record ed Within the past 12 months, h as lack of transportation kept you from medical appointments, getting your medicines, non-medical meetings or appointments, work, or from getting things that you need? No 07/08/2024 Interpersonal Safety Answer Date Record ed Do you feel physically and e motionally safe where you currently live? Yes 07/11/2024 Within the past 12 months, h ave you been hit, slapped, kicked or otherwise physically hurt by someone? No 07/11/2024 Within the past 12 months, h ave you been humiliated or emotionally abused in other ways by your partner or ex-partner? No 07/11/2024 Comments No Sex and Gender Information Value Date Recorded Sex Assigned at Female 11/12/2020 12:43 PM CDT Legal Sex Female 3:44 AM TOOLROOM ATTENDANT Gender Identity Female 11/12/2020 12:43 PM CDT Sexual Orientation Straight 11/12/2020 12 :43 PM CDT Occupation Industry Job Start Date Job End Date Not on file Not on file Not on file Not on file Last Filed Vital Signs Vital Sign Reading Time Taken Comments Blood Pressure 142/89 12/17/2024 10:51 AM CDT Pulse 71 12/17/2024 10:46 AM CDT Temperature 36.3 C (97.4 F) 12/17/2024 10:46 AM CDT Respiratory Rate 18 12/17/2024 10:46 AM CDT Oxygen Saturation 99% 12/17/2024 10:46 AM CDT Inhaled Oxygen Concentration - - Weight 71.2 kg (157 lb) 12/17/2024 10:46 AM CDT Height 148.6 cm (4' 10.5) 12/17/2024 10:46 AM C DT Body Mass Index 32.25 12/17/2024 10:46 AM CDT Plan of Treatment Health Maintenance Due Date Last Done Comments CT COLONOGRAPHY 1972 FIT 1972 FLEX SIG 1972 sDNA (Cologuard) 1972 LUNG CANCER SCREENING 2022 PNEUMOCOCCAL VACCINE 50+ YEARS (1 of 1 - PCV) 2022 ZOSTER VACCINE (1 of 2) 2022 COVID-19 VACCINE (5 - season) 2024 04/28/2023, 06/14/2022, 04/14/2021, Additional history exists INFLUENZA VACCINE (#1) 2025 , 04/28/2023, 02/17/2022, Additional history exists LIPID 04/16/2025 04/16/2024, 01/2022, 04/13/2021, Additional history exists ANNUAL REVIEW OF HM ORDERS 06/18/202506/18, 07/04/2023, 05/18/2022, Additional history exists PHQ-9 06/19/2025 12/17/2024, 11/2024, 06/18/2024, Additional history exists BMP 07/11/2025 07/11/2024, 06/07, 05/12/2022, Additional history exists YEARLY PREVENTIVE VISIT 07/11/2025 07/11/19 25, 07/04/2023, 05/18/2022, Additional history exists MAMMO SCREENING 07/23/2026 07/23/2024, 10/03, 04/12/2021, Additional history exists DTAP/TDAP/TD VACCINE (6 - Td or Tdap) 11/10/2026 11/10/2016, 12/19/2012, 09/16/2005, Additional history exists DIABETES SCREENING 07/11/2027 07/11/2024, 0 07/04/2023, 07/04/2023, Additional history exists COLONOSCOPY 10/08/2028 10/08/2018 COLORECTAL CANCER SCREENING 10/08/2028 ADVANCE CARE PLANNING 07/11/2029 07/11/2024, 022 HIV SCREENING Completed 08/26/1992 DEPRESSION ACTION PLAN Completed 8, 09/20/2016, 01/08/2015, Additional history exists HEPATITIS B VACCINE Discontinued HEPATITIS C SCREENING Discontinued HPV VACCINE (No Doses Required) Completed MENINGITIS VACCINE Aged Out No longer eligible based on patient's age to complete this topic PAP Discontinued Procedures Procedure Name Priority Date/Time Associated Diagnosis Comments MA SCREENING BILATERAL W/ ARISTIDES Routine 07/23/2024 4:21 PM TOOLROOM ATTENDANT Visit for screening mammogram BASIC METABOLIC PANEL Routine 07/11/2024 10:36 AM TOOLROOM ATTENDANT Benign essential hypertension LIPID REFLEX TO DIRECT LDL PANEL Routine 04/16/2024 4:10 PM TOOLROOM ATTENDANT Mixed hyperlipidemia COLONOSCOPY - HIM SCAN 10/08/2018 12:00 AM CDT from Last 3 Months or Most Recently Relevant to Health Maintenance Results * MA Screen Bilateral w/Aristides (07/23/2024 4:21 PM TOOLROOM ATTENDANT) Anatomical Region Laterality Modality Breast Bilateral Mammography Impressions 07/24/2024 7:35 AM TOOLROOM ATTENDANT IMPRESSION: ACR BI-RADS Category 1: Negative BREAST CANCER SCREENING RECOMMENDATION: Routine yearly mammography beginning at age 40 or as discussed with your provider. The results and recommendations of this examination will be communicated to the patient. Germain Benavides MD Narrative 07/24/2024 7:35 AM TOOLROOM ATTENDANT BILATERAL FULL FIELD DIGITAL SCREENING MAMMOGRAM WITH TOMOSYNTHESIS Performed on: 07/23/24 Compared to: 10/14/2022, 04/12/2021, and 03/28/2020 Technique: This study was evaluated with the assistance of Computer-Aided Detection. Breast Tomosynthesis was used in interpretation. Findings: There are scattered areas of fibroglandular density. There is no radiographic evidence of malignancy. us Jack Romano PA-C IM MAMMOGRAPHY ORDERABLES Final Result * BASIC METABOLIC PANEL (07/11/2024 10:36 AM TOOLROOM ATTENDANT) Sodium 142 135 - 145 mmol/L 07/11/2024 6:33 PM TOOLROOM ATTENDANT [facility] Potassium 4.7 3.4 - 5.3 mmol/L 07/11/2024 6:33 PM TOOLROOM ATTENDANT [facility] Chloride 104 98 - 107 mmol/L 07/11/2024 6:33 PM TOOLROOM ATTENDANT [facility] Carbon Dioxide (CO2) 25 22 - 29 mmol/L 07/11/2024 6:33 PM TOOLROOM ATTENDANT [facility] Anion Gap 13 7 - 15 mmol/L 07/11/2024 6:33 PM TOOLROOM ATTENDANT [facility] Urea Nitrogen 6.4 6.0 - 20.0 mg/dL 07/11/2024 6:33 PM TOOLROOM ATTENDANT [facility] Creatinine 0.73 0.51 - 0.95 mg/dL 07/11/2024 6:33 PM TOOLROOM ATTENDANT [facility] GFR Estimate >90 >60 mL/min/1.7 3m2 07/11/2024 6:33 PM TOOLROOM ATTENDANT [facility] Comment:eGFR calculated us2020 CKD-EPI equation. Calcium 9.3 8.8 - 10.4 mg/dL 07/11/2024 6:33 PM TOOLROOM ATTENDANT [facility] Glucose 94 70 - 99 mg/dL 07/11/2024 6:33 PM TOOLROOM ATTENDANT [facility] Blood BLOOD SPECIMEN / Unknown Venipuncture / Unknown 07/11/2024 10:36 AM TOOLROOM ATTENDANT 07/11/2024 10:36 AM TOOLROOM ATTENDANT us Jack Romano PA-C LAB - BLOOD ORDERABLES Aileen rodriguez Result [facility] [place] [facility] [address] [facility], [address] [id number] * (ABNORMAL) Lipid panel reflex to direct LDL Non-fasting (04/16/2024 4:10 PM TOOLROOM ATTENDANT) Cholesterol 240(H) <200 mg/dL 04/16/2024 10:08 PM TOOLROOM ATTENDANT [facility] Triglycerides 254(H) <150 mg/dL 04/16/2024 10:08 PM TOOLROOM ATTENDANT [facility] Direct Measure HDL 72 >=50 mg/dL 04/16/2024 10:08 PM TOOLROOM ATTENDANT [facility] LDL Cholesterol Calculated 117(H) <100 mg/dL 04/16/2024 10:08 PM TOOLROOM ATTENDANT [facility] Non HDL Cholesterol 168(H) <130 mg/dL 04/16/2024 10:08 PM TOOLROOM ATTENDANT [facility] Patient Fasting > 8hrs? Unknown 04/16/2024 10:08 PM TOOLROOM ATTENDANT [facility] Blood BLOOD SPECIMEN / Unknown Venipuncture / Unknown 04/16/2024 4:10 PM TOOLROOM ATTENDANT 04/16/2024 4:13 PM TOOLROOM ATTENDANT Narrative [facility] - 04/16/2024 10:08 PM TOOLROOM ATTENDANT Cholesterol Desirable: < 200 mg/dL Borderline High: 200 - 239 mg/dL High: >= 240 mg/dL Triglycerides Normal: < 150 mg/dL Borderline High: 150 - 199 mg/dL High: 200-499 mg/dL Very High: >= 500 mg/dL Direct Measure HDL Female: >= 50 mg/dL Male: >= 40 mg/dL LDL Cholesterol Desirable: < 100 mg/dL Above Desirable: 100 - 129 mg/dL Borderline High: 130 - 159 mg/dL High: 160 - 189 mg/dL Very High: >= 190 mg/dL Non HDL Cholesterol Desirable: < 130 mg/dL Above Desirable: 130 - 159 mg/dL Borderline High: 160 - 189 mg/dL High: 190 - 219 mg/dL Very High: >= 220 mg/dL us Jack Romano PA-C LAB - BLOOD ORDERABLES Aileen rodriguez Result [facility]ORATORY [facility] Lab [address] [facility], [address] [place] [address] * COLONOSCOPY - HIM SCAN (10/08/2018 12:00 AM CDT) 10/08/2018 us Provider Outside PROCEDURES Final Result from Last 3 Months or Most Recently Relevant to Health Maintenance Insurance [facility] CHO[facility] BCBS OF [place] [facility] CHO[facility] Advance Directives For more information, please contact: [phone] * Full Code (Latest Code Status on File) Date Activated Date Inactivated Comments 04/29/2014 12:06 PM 08/16/2018 2:58 PM * Full Code Date Activated Date Inactivated Comments 04/28/2014 6:43 PM 04/29/2014 12:06 PM * No Code Status Date Activated Date Inactivated Comments 02/13/2004 1:28 PM 02/13/2004 1:28 PM Care Teams Development And Planning Engineer Relationship Specialty Start Date End Date Jack Romano PA-C [address] [place] [address] PCP - General Physician Bridge Construction Inspector - Medical 07/25/18 Jack Romano PA-C [address] [place] [address] Assigned PCP 04/18/21 Liana Turner PA-C [address] [place] [id number] Physician Bridge Construction Inspector 07/17/24 [place] [address] [address] Assigned Musculoskeletal Provider 08/25/24 Liana Turner PA-C [address] [place] [id number] Assigned Dermatology Provider 09/25/24
--- OUTSIDE RECORDS SUMMARY | 2025-02-01 16:06 | XMS_ITS | Encounter Summary ---
Author Organization [facility] Address [address] [place] [address] Care Team Providers Care Gas Processing Plant Operator Name Role Phone Jack Romano PA-C Primary Care Provider [phone] Jack Romano PA-C Unavailable [phone] Jack Romano PA-C Unavailable [phone] Jack Romano PA-C Unavailable [phone] Liana Turner PA-C Unavailable [phone] Ryland Mora DO Unavailable [phone] Liana Turner PA-C Unavailable [phone] Encounter Details Date Type Department Care Team (Late st Contact Info) Description 10/23/2020 [facility] [place] [address] [address] Annabelle Ng RN Social History Tobacco Use Types Packs/Day Years Used Date Smoking Tobacco: Light Smoker Cigarettes 0.5 4 Started: 013; Last attempted to quit: 07/13/2016 Smokeless Tobacco: Former Quit: 06/20/2012 Comments:i am using quit susan n Alcohol Use Standard Drinks/Week Comments Not Currently 0 (1 standard drink = 0.6 oz pur e alcohol) 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 PHQ-2 Answer Date Recorded PHQ-2 Total Score (Adult) - Positive if 3 or more points; Administer PHQ-9 if positive 0 10/26/2020 Comments No Sex and Gender Information Value Date Recorded Sex Assigned at Female 11/12/2020 12:43 PM CDT Legal Sex Female 3:44 AM CREDIT UNION TELLER Gender Identity Female 11/12/2020 12:43 PM CDT [...] Noted Time PHQ-9 Depression Total Score: 0 10/28/19 7:03 AM CDT documented as of this encounter Care Teams Gas Processing Plant Operator Relationship Specialty Start Date End Date Jack Romano PA-C [address] [place] [address] PCP - General Physician Deadener - Medical 07/25/18 Jack Romano PA-C [address] [place] [address] Assigned PCP 12/22/19 03/20/21 Jack Romano PA-C [address] [place] [address] Assigned PCP 03/21/21 04/17/21 Jack Romano PA-C [address] [place] [address] Assigned PCP 04/18/21 Liana Turner PA-C [address] [place] [address] Physician Deadener 07/17/24 [place] [address] [address] Assigned Musculoskeletal Provider 08/25/24 Liana Turner PA-C [address] [address] Assigned Dermatology Provider 09/25/24 documented as of this encounter
--- OUTSIDE RECORDS SUMMARY | 2025-02-01 16:06 | XMS_ITS | Encounter Summary ---
Author Organization [facility] Address [facility] [place] [address] Care Team Providers Care Chemical Blender Name Role Phone Teofilo Adam MD Primary Care Provider Dolores CharlesC Primary Care Pr ovider Edson Patel MD Primary Care Provider [phone] Dolores Charles-C Primary Care Pr ovider [facility] Primary Care Provide r Brit Stovall CULINARY ARTS INSTRUCTOR Unavailable [phone] Jack Romano PA-C Primary Care Provider [phone] Brit Stovall CULINARY ARTS INSTRUCTOR Unavailable [phone] Jack Romano PA-C Unavailable + Jack Romano PA-C Unavailable + Marisol Rodriguez RN Unavailable Unavailable Jack Romano PA-C Unavailable + Jack Romano PA-C Unavailable + Liana Turner PA-C Unavailable [phone] Ryland Mora DO Unavailable [phone] Liana Turner PA-C Unavailable Encounter Details Date Type Department Care Team (Late st Contact Info) Description 08/09/[address] [address] [place] [address] Emergency (Primary Dx) Social History Tobacco Use Types Packs/Day Years Used Date Smoking Tobacco: Former Cigarettes 0.5 26.1 0 06/05/1990 - 07/13/2016 Other Passive Smoke Exposure: Never Smokeless Tobacco: Former Quit: 06/20/2012 Comments:i am using quit susan n Alcohol Use Standard Drinks/Week Comments Not Currently 0 (1 standard drink = 0.6 oz pur e alcohol) 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 Comments No Sex and Gender Information Value Date Recorded Sex Assigned at Female 11/12/2020 12:43 PM CDT Legal Sex Female 3:44 AM BUSINESS ANALYSIS ANALYST Gender Identity Female 11/12/2020 12:43 PM CDT Sexual Orientation Straight 11/12/2020 12 :43 PM CDT Occupation Industry Job Start Date Job End Date Not on file Not on file Not on file Not on file documented as of this encounter Plan of Treatment Not on file documented as of this encounter Visit Diagnoses Diagnosis Emergency- Primary documented in this encounter Additional Health Concerns Infection Onset Date Last Indicated Resolved Time COVID-19 01/25/2022 01/26/2022 02/15/2022 11:4 1 PM CDT documented as of this encounter Care Teams Chemical Blender Relationship Specialty Start Date End Date [place] [address] PCP - General 03/02/04 02/27/11 Dolores Charles PA-C [address] [place] [address] PCP - General Family Practice 02/28/11 07/16/11 [place] [address] [place] [address] PCP - General Family Practice 07/17/11 08/13/13 Dolores Charles PA-C [address] [place] [address] PCP - General Physician Assistant Manager Bilingual 08/14/13 04/09/[address] [address] PCP - General 04/10/18 07/24/18 Brit Stovall NP [address] [place] [address] PCP - Assigned PCP 10/16/16 08/07/18 Jack Romano PA-C [address] [place] [address] PCP - General Physician Assistant Manager Bilingual - Medical 07/25/18 Brit Stovall NP [address] [place] [address] Assigned PCP 10/16/16 08/18/18 Jack Romano PA-C [address] [place] [address] Assigned PCP 07/29/18 12/21/19 Jack Romano PA-C [address] [place] [address] Assigned PCP 12/22/19 03/20/21 Marisol Rodriguez, RN Personal Advocate & Liaison (PAL) Family Practice 03/13/20 06/10/20 Jack Romano PA-C [address] [place] [address] Assigned PCP 03/21/21 04/17/21 Jack Romano PA-C [address] [place] [address] Assigned PCP 04/18/21 Liana Turner PA-C [address] [place] [address] Physician Assistant Manager Bilingual 07/17/24 [place] [address] [address], [address] [address] Assigned Musculoskeletal Provider 08/25/24 Liana Turner PA-C [address] [place] [address] Assigned Dermatology Provider 09/25/24 documented as of this encounter
--- OUTSIDE RECORDS SUMMARY | 2025-02-01 16:06 | XMS_ITS | Encounter Summary ---
Author Organization [place] Address [address] [facility] [place] [address] Care Team Providers Care Head Well Puller Name Role Phone Jack Romano-Joby Primary Care Provider [phone] Jack Romano-Joby Unavailable [phone] Jack Romano-C Unavailable [phone] Jack Romano-C Unavailable [phone] Liana Turner-C Unavailable [phone] Ryland Mora DO Unavailable [phone] Liana Turner PA-C Unavailable [phone] Reason for Visit * Reason Onset Date Comments Medication Refill 09/14/2020 tiZANidine (ZA NAFLEX) 4 MG tablet Encounter Details Date Type Department Care Team (Late st Contact Info) Description 09/13/2020 Refill [facility] [address] [place] [address] Aracelis Chow APRN CNP [address] [place] [address] Medication Refill (tiZANidine (ZANAFLEX) 4 MG tablet) Social History Tobacco Use Types Packs/Day Years Used Date Smoking Tobacco: Light Smoker Cigarettes 0.5 4 Started: 013; Last attempted to quit: 07/13/2016 Smokeless Tobacco: Former Quit: 06/20/2012 Comments:i am using quit susan n Alcohol Use Standard Drinks/Week Comments Not Currently 0 (1 standard drink = 0.6 oz pur e alcohol) 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 Updated in chart and correct dose filled. * Telephone Encounter - Annabelle Ng RN - 09/14/2020 11:24 AM CDT tiZANidine (ZANAFLEX) 4 MG tablet Last Written Prescription Date: 08/28/2020 Last Fill Quantity: 60, # refills: 0 Last Office Visit: 03/19/2020 Future Office visit: Routing refill request to provider for review/approval because: Drug not on the [facility], [facility] or [facility] refill protocol or controlled substance. Annabelle Ng RN documented in this encounter Plan of Treatment Not on file documented as of this encounter Visit Diagnoses Diagnosis Back muscle spasm Other symptoms referable to back documented in this encounter Additional Health Concerns Infection Onset Date Last Indicated Resolved Time COVID-19 01/25/2022 01/26/2022 02/15/2022 11:4 1 PM CDT Assessment Noted Time PHQ-9 Depression Total Score: 5 03/19/20 20 2:07 PM CDT documented as of this encounter Care Teams Head Well Puller Relationship Specialty Start Date End Date Jack Romano PA-C [address] [place] [address] PCP - General Physician Subgrade Tester - Medical 07/25/18 Jack Romano PA-C [address] [place] [address] Assigned PCP 12/22/19 03/20/21 Jack Romano PA-C 13361 [place] [address] Assigned PCP 03/21/21 04/17/21 Jack Romano PA-C 77395 [place] [address] Assigned PCP 04/18/21 Liana Turner PA-C [address] [place] [address] 934400 Physician Subgrade Tester 07/17/24 [place] [address] [address], [address] [address] Assigned Musculoskeletal Provider 08/25/24 Liana Turner PA-C [address] [place] [address] 745090 Assigned Dermatology Provider 09/25/24 documented as of this encounter
--- OUTSIDE RECORDS SUMMARY | 2025-02-01 16:06 | XMS_ITS | Encounter Summary ---
Author Organization [place] Address [address] [facility] [place] [address] Care Team Providers Care Change Analyst Name Role Phone Jack Romano PA-C Primary Care Provider [phone] Jack Romano PA-C Unavailable [phone] Jack Romano-Joby Unavailable [phone] Liana Turner PA-C Unavailable [phone] Ryland Mora DO Unavailable [phone] Liana Turner PA-C Unavailable [phone] Encounter Details Date Type Department Care Team (Late st Contact Info) Description 03/23/2021 [facility] [place] Medical Advice [facility] [address] [place] [address] Jack Romano PA-C [address] [place] [address] Social History Tobacco Use Types [...] PM CDT 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 No / Unsure 03/22/2021 4:03 PM CDT documented as of this encounter Miscellaneous Notes * Telephone Encounter - Shadia Mariano RN - 03/23/2021 11:43 AM CDT Will forward to Jack Romano. See other mychart of 03/23/2021. documented in this encounter Plan of Treatment Not on file documented as of this encounter Visit Diagnoses Not on filedocumented in this encounter Additional Health Concerns Infection Onset Date Last Indicated Resolved Time COVID-19 01/25/2022 01/26/2022 02/15/2022 11:4 1 PM CDT Assessment Noted Time PHQ-9 Depression Total Score: 0 10/28/19 7:03 AM CDT documented as of this encounter Care Teams Change Analyst Relationship Specialty Start Date End Date Jack Romano PA-C [address] [address] [address] PCP - General Physician Reproductive Surgeon - Medical 07/25/18 Jack Romano PA-C [address] [place] [address] Assigned PCP 03/21/21 04/17/21 Jack Romano PA-C [address] [place] [address] Assigned PCP 04/18/21 Liana Turner PA-C [address] [place] [address] Physician Reproductive Surgeon 07/17/24 [place] [address] [address], [address] [address] Assigned Musculoskeletal Provider 08/25/24 Liana Turner PA-C [address] [place] [address] Assigned Dermatology Provider 09/25/24 documented as of this encounter
--- OUTSIDE RECORDS SUMMARY | 2025-02-01 16:06 | XMS_ITS | Encounter Summary ---
Author Organization [place] Address [address] [place] [address]. [place] [address] Care Team Providers Care Lead Laying And Gluing Machine Operator Name Role Phone Jack Romano PA-C Primary Care Provider [phone] Jack Romano PA-C Unavailable [phone] Marisol Rodriguez RN Unavailable Unavailable Jack Romano PA-C Unavailable [phone] Jack Romano PA-C Unavailable [phone] Liana Turner-Joby Unavailable [phone] Ryland Mroa DO Unavailable [phone] Liana Turner-C Unavailable [phone] Reason for Visit * Reason Comments Medication Refill Encounter Details Date Type Department Care Team (Late st Contact Info) Description 04/12/[address] [phone] Jack Romano PA-C [address] [place] [address] Medication Refill Social History Tobacco Use Types Packs/Day Years [...] PM CDT 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 No / Unsure 03/19/2020 1:55 PM CDT documented as of this encounter Miscellaneous Notes * Telephone Encounter - Chantell Paul RN - 04/13/2020 11:36 AM PROCESS ENVIRONMENTAL TECHNICIAN Prescription approved per [facility], [facility] or [facility] refill protocol. Chantell Ely - Registered Nurse [facility] ESS ENVIRONMENTAL TECHNICIAN documented in this encounter Plan of Treatment Not on file documented as of this encounter Visit Diagnoses Diagnosis Anxiety Anxiety state, unspecified Insomnia, unspecified type documented in this encounter Additional Health Concerns Infection Onset Date Last Indicated Resolved Time COVID-19 01/25/2022 01/26/2022 02/15/2022 11:4 1 PM CDT Assessment Noted Time PHQ-9 Depression Total Score: 5 03/19/20 2:07 PM CDT documented as of this encounter Care Teams Lead Laying And Gluing Machine Operator Relationship Specialty Start Date End Date Jack Romano PA-C [address] [address] [place] [address] PCP - General Physician Cam Milling Machine Operator - Medical 07/25/18 Jack Romano PA-C 249[address] [address] [address] Assigned PCP 12/22/19 03/20/21 Marisol Rodriguez, RN Personal Advocate & Liaison (PAL) Family Practice 03/13/20 06/10/20 Jack Romano PA-C 12833 [place] [address] Assigned PCP 03/21/21 04/17/21 Jack Romano PA-C 29436 [place] [address] Assigned PCP 04/18/21 Liana Turner PA-C [address] [place] [address] Physician Cam Milling Machine Operator 07/17/24 [place] [address] [address], [address] [address] Assigned Musculoskeletal Provider 08/25/24 Liana Turner PA-C [address] [place] [address] Assigned Dermatology Provider 09/25/24 documented as of this encounter
--- OUTSIDE RECORDS SUMMARY | 2025-02-01 16:06 | XMS_ITS | Encounter Summary ---
Author Organization [place] Address [address] [place] [address]. [place] [address] Care Team Providers Care Data Analytics Architect Name Role Phone Jack Romano PA-C Primary Care Provider [phone] Jack Romano PA-C Unavailable [phone] Jack Romano-C Unavailable [phone] Jack Romano-C Unavailable [phone] Liana Turner PA-C Unavailable [phone] Ryland Mora DO Unavailable [phone] Liana Turner PA-C Unavailable [phone] Encounter Details Date Type Department Care Team (Late st Contact Info) Description 09/15/2020 [facility] [place] [place] Medical Advice [address] [address] Jack Romano PA-C [address] [place] [address] Social History Tobacco Use Types [...] PM CDT 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 Gender Identity Female 11/12/2020 12:43 PM CDT Sexual Orientation Straight 11/12/2020 12 :43 PM CDT Occupation Industry Job Start Date Job End Date Not on file Not on file Not on file Not on file documented as of this encounter Miscellaneous Notes * Telephone Encounter - Blaine Witt RN - 09/15/2020 2:49 PM CDT Responded to patient via [employer]hart Blaine Witt RN documented in this encounter Plan of Treatment Not on file documented as of this encounter Visit Diagnoses Not on filedocumented in this encounter Additional Health Concerns Infection Onset Date Last Indicated Resolved Time COVID-19 01/25/2022 01/26/2022 02/15/2022 11:4 1 PM CDT Assessment Noted Time PHQ-9 Depression Total Score: 5 03/19/20 20 2:07 PM CDT documented as of this encounter Care Teams Data Analytics Architect Relationship Specialty Start Date End Date Jack Romano PA-C [address] [address] [place] [address] PCP - General Physician Security Dispatcher - Medical 07/25/18 Jack Romano PA-C 24102 [address] [address] Assigned PCP 12/22/19 03/20/21 Jack Romano PA-C 67168 [place] [address] Assigned PCP 03/21/21 04/17/21 Jack Romano PA-C [address] [place] [address] Assigned PCP 04/18/21 Liana Turner PA-C [address] [place] [address] Physician Security Dispatcher 07/17/24 [place] [address] [address]Z, [address] [address] Assigned Musculoskeletal Provider 08/25/24 Liana Turner PA-C [address] [place] [address] Assigned Dermatology Provider 09/25/24 documented as of this encounter
--- OUTSIDE RECORDS SUMMARY | 2025-02-01 16:06 | XMS_ITS | Encounter Summary ---
Author Organization [place] Address [address] [place] [address]. [place] [address] Care Team Providers Care Nicking Machine Operator Name Role Phone Jack Romano PA-C Primary Care Provider [phone] Jack Romano PA-C Unavailable [phone] Jack Romano-C Unavailable [phone] Jack Romano-C Unavailable [phone] Liana Turner PA-C Unavailable [phone] Ryland Mora DO Unavailable [phone] Liana Turner PA-C Unavailable [phone] Encounter Details Date Type Department Care Team (Late st Contact Info) Description 08/27/2020 [facility] [place] Medical Advice [address] [address] Jack Romano PA-C [address] [place] [address] Social History Tobacco Use Types [...] PM CDT 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 Gender Identity Female 11/12/2020 12:43 PM CDT [...] documented as of this encounter Care Teams Nicking Machine Operator Relationship Specialty Start Date End Date Jack Romano PA-C [address] [address] [place] [address] PCP - General Physician Banquet Waiter/Waitress - Medical 07/25/18 Jack Romano PA-C [address] [place] [address] Assigned PCP 12/22/19 03/20/21 Jack Romano PA-C 20207 [address] [address] Assigned PCP 03/21/21 04/17/21 Jack Romano PA-C 18253 [place] [address] Assigned PCP 04/18/21 Liana Turner PA-C [address] [address] Physician Banquet Waiter/Waitress 07/17/24 [place] [address] [place] , [address] [address] Assigned Musculoskeletal Provider 08/25/24 Liana Turner PA-C [address] [place] [address] Assigned Dermatology Provider 09/25/24 documented as of this encounter
--- OUTSIDE RECORDS SUMMARY | 2025-02-01 16:06 | XMS_ITS | Encounter Summary ---
Author Organization [place] Address [address] [place] [address] Care Team Providers Care Ethnic Studies Professor Name Role Phone Jack Romano PA-C Primary Care Provider [phone] Jack Romano PA-C Unavailable [phone] Jack Romano-C Unavailable [phone] Marisol Rodriguez RN Unavailable Unavailable Jack Romano-C Unavailable [phone] Jack Romano-C Unavailable [phone] Liana Turner PA-C Unavailable [phone] Ryland Mora DO Unavailable Liana Turner PA-C Unavailable [phone] Reason for Visit * Reason Onset Date Comments MyChart Communication 2018 Encounter Details Date Type Department Care Team (Late st Contact Info) Description 2018 [facility] [address] [facility], [address] [place] [address] Jack Romano PA-C [address] [place] [address] MyChart Communication Social History Tobacco Use Types Packs/Day Years [...] PM CDT 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 Annabelle Ng RN * Telephone Encounter - Jack Romano PA-C - 08/23/2018 11:33 AM CDT I still think that's too many. Should be 3 daily at most. I have concerns no only aabout using so much, but that she still has pain. Let's see about physical therapy and switching the med still please. Jack Zhang * Telephone Encounter - Amy Funes RN - 08/22/2018 2:05 PM CDT PCP: Please see most recent reply. The Pt has 14 tabs left. Script was issued on 08/09/18 so that would equal about 5.5 tabs daily. Triage can call the Pt and relay the below info, but wanted to first see if you had any additional feedback on this given the amount she is taking daily. Amy Funes RN -- [facility] * Telephone Encounter - Jack Romano PA-C - 08/22/2018 11:46 AM CDT I would worry some about her taking this one three times a day. (what dose? 2mg? 4mg?) It can be quite sedating. I know she has been under stress and also with the in pain with her shoulder. See if we can get her in for physical therapy. (I'll just place referral). I think I should change it to something like Robaxin which is less sedating. I just worry about driving etc while on Tizanidine. Plus if I do the math right, and she has taken #90 tabs since 08/09/18 that is 6.9 tabs daily?? Thanks, Jack * Telephone Encounter - Amy Funes RN - 08/22/2018 10:11 AM CDT PCP: See most recent response. Amy Funes RN -- [facility] * Telephone Encounter - Amy Funes RN - 08/22/2018 7:43 AM CDT Responded to the Pt and advised lab only visit to check CBC. Amy Funes RN -- [facility] * Telephone Encounter - Jack Romano PA-C - 08/21/2018 5:41 PM CDT She can come in before that appointment to check her hgb. Jack * Telephone Encounter - Natalie Funk RN - 08/21/2018 11:42 AM CDT Scheduled to see Dr Orellana at [facility] September 10 Do you need labs prior to that appt? Natalie Funk RN, BS Clinical Nurse Triage. * Telephone Encounter - Amy Funes RN - 08/21/2018 8:59 AM CDT Responded to the Pt to get more info on timeline of when she will see Hematology. Amy Funes RN -- [facility] [employer] * Telephone Encounter - Jack Romano PA-C - 2018 3:57 PM CDT Let's see when she gets in with heme. She can come in anytime really to get it checked if she is curious. Sometimes the clinical symptoms lag behind the numbers. If she gets in to heme soon I'd just tell her to wait but if it's still a week or two have her come in here. I'll order a future CBC. Jack * Telephone Encounter - Amy Funes RN - 2018 9:03 AM CDT Routing to Jack to review. Amy Funes RN -- [employer] documented in this encounter Plan of Treatment Not on file documented as of this encounter Results * (ABNORMAL) CBC with platelets FUTURE anytime (08/23/2018 11:43 AM CDT) WBC 8.2 4.0 - 11.0 10e9/L 08/23/2018 11:54 AM CDT [facility] RBC Count 4.59 3.8 - 5.2 10e12/L 08/23/2018 11:54 AM CDT [facility] Hemoglobin 9.6(L) 11.7 - 15.7 g/dL 08/23/2018 11:54 AM CDT [facility] Hematocrit 33.9(L) 35.0 - 47.0 % 08/23/2018 11:54 AM CDT [facility] MCV 74(L) 78 - 100 fl 08/23/2018 11:54 AM CDT [facility] MCH 20.9(L) 26.5 - 33.0 pg 08/23/2018 11:54 AM CDT [facility] MCHC 28.3(L) 31.5 - 36.5 g/dL 08/23/2018 11:54 AM CDT [facility] Comment:Results confirmed by repeat test RDW 21.4(H) 10.0 - 15.0 % 08/23/2018 11:54 AM CDT [facility] Platelet Count 402 150 - 450 10e9/L 08/23/2018 11:54 AM CDT [facility] Blood specimen (specimen) 08/23/2018 11:43 AM CDT 08/23/2018 11:44 AM CDT Jack Romano PA-C LAB - BLOOD ORDERABLES Aileen l Result Performing Organization Address City/State/[facility] Co de Phone Number [facility] [place] [address] [facility] JUAN CARLOS Guerra [address] documented in this encounter Visit Diagnoses Diagnosis Iron deficiency anemia, unspecified iron deficiency anemia type- Primary Back muscle spasm Other symptoms referable to back documented in this encounter Additional Health Concerns Infection Onset Date Last Indicated Resolved Time COVID-19 01/25/2022 01/26/2022 02/15/2022 11:4 1 PM CDT Assessment Noted Time PHQ-9 Depression Total Score: 1 06/15/19 19 9:50 AM COMPUTER TYPESETTER KEYLINER documented as of this encounter Care Teams Ethnic Studies Professor Relationship Specialty Start Date End Date Jack Romano PA-C [address] [place] [address] PCP - General Physician Fiberglass Tube Molder - Medical 07/25/18 Jack Romano PA-C [address] [place] [address] Assigned PCP 07/29/18 12/21/19 Jack Romano PA-C [address] [place] [address] Assigned PCP 12/22/19 03/20/21 Marisol Rodriguez, RN Personal Advocate & Liaison (PAL) Family Practice 03/13/20 06/10/20 Jakc Romano PA-C [address] [place] [address] Assigned PCP 03/21/21 04/17/21 Jack Romano PA-C [address] [place] [address] Assigned PCP 04/18/21 Liana Turner PA-C [address] [place] [address] Physician Fiberglass Tube Molder 07/17/24 [place] [address] [address], [address] [address] Assigned Musculoskeletal Provider 08/25/24 Liana Turner PA-C [address] [place] [address] Assigned Dermatology Provider 09/25/24 documented as of this encounter
--- OUTSIDE RECORDS SUMMARY | 2025-02-01 16:06 | XMS_ITS | Encounter Summary ---
Author Organization [place] Address [address] [place] [address] Care Team Providers Care Avaya Engineer Name Role Phone Dolores Charles PA-C Primary Care Pr ovider [facility] Primary Care Provide r Brit Stovall RESIDENT ENGINEER Unavailable [phone] Jack Romano PA-C Primary Care Provider [phone] Brit Stovall RESIDENT ENGINEER Unavailable [phone] Jack Romano PA-C Unavailable [phone] Jack Romano PA-C Unavailable [phone] Marisol Rodriguez RN Unavailable Unavailable Jack Romano PA-C Unavailable [phone] Jack Romano PA-C Unavailable [phone] Liana Turner PA-C Unavailable [phone] Ryland Mora DO Unavailable [phone] Liana Turner PA-C Unavailable [phone] Reason for Visit * Reason Onset Date Comments Evelinhart Communication 12/21/2017 Encounter Details Date Type Department Care Team (Late st Contact Info) Description 12/21/2017 Evelin Santos [facility] [id number] [place] [phone] Brit Stovall NP [place] [address] [place] [address] MyChart Communication Social History Tobacco Use Types [...] PM CDT 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 Gender Identity Female 11/12/2020 12:43 PM CDT [...] Noted Time PHQ-9 Depression Total Score: 0 11/23/19 18 7:14 AM CDT documented as of this encounter Care Teams Avaya Engineer Relationship Specialty Start Date End Date Dolores Charles PA-C [address] [place] [address] PCP - General Physician Dock Coordinator 08/14/13 04/09/18 [facility] [address] F[place]OR [place] [address] PCP - General 04/10/18 07/24/18 Brit Stovall RESIDENT ENGINEER [place] [id number] [place] [address] PCP - Assigned PCP 10/16/16 08/07/18 Jack Romano PA-C [address] [place] [address] PCP - General Physician Dock Coordinator - Medical 07/25/18 Brit Stovall, RESIDENT ENGINEER [address] [place] [address] Assigned PCP 10/16/16 08/18/18 Jack oRmano PA-C [address] [place] [address] Assigned PCP 07/29/18 12/21/19 Jack Romano PA-C [address] [place] [address] Assigned PCP 12/22/19 03/20/21 Marisol Rodriguez, RN Personal Advocate & Liaison (PAL) Family Practice 03/13/20 06/10/20 Jack Romano PA-C [address] [place] [address] Assigned PCP 03/21/21 04/17/21 Jack Romano PA-C [address] [place] [address] Assigned PCP 04/18/21 Liana Turner PA-C [address] [place] [address] Physician Dock Coordinator 07/17/24 [place] [address] [address]Z, [address] [address] Assigned Musculoskeletal Provider 08/25/24 Liana Turner PA-C [address] [place] [address] Assigned Dermatology Provider 09/25/24 documented as of this encounter
--- OUTSIDE RECORDS SUMMARY | 2025-02-01 16:06 | XMS_ITS | Encounter Summary ---
Author Organization [facility] Address [address] [place] [address] Care Team Providers Care Narrow Gauge Brakeman Name Role Phone Doolres Charles PA-C Primary Care Pr ovider [facility] Primary Care Provide r Brit Stovall GAS GOLF CART REPAIRER Unavailable Jack Romano PA-C Primary Care Provider [phone] Brit Stovall GAS GOLF CART REPAIRER Unavailable [phone] Jack Romano PA-C Unavailable [phone] Jack Romano PA-C Unavailable [phone] Marisol Rodriguez RN Unavailable Unavailable Jack Romano PA-C Unavailable [phone] Jack Romano PA-C Unavailable [phone] Liana Turner PA-C Unavailable [phone] Ryland Mora DO Unavailable [phone] Liana Turner PA-C Unavailable [phone] Reason for Visit * Reason Onset Date Comments Evelinhart Communication 11/06/2017 Encounter Details Date Type Department Care Team (Late st Contact Info) Description 11/06/2017 [facility] [id number] [place] [address] Brit Stovall, [facility] & [address] [facility] [place] [address] MyChart Communication Social History Tobacco Use Types [...] PM CDT 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 Rash and nonspecific skin eruption Castellanos tart on diflucan for now. May be contact dermatitis and need a steroid. - fluconazole (DIFLUCAN) 150 MG tablet; Take 1 tablet (150 mg) by mouth every 3 days Dispense: 4 tablet; Refill: 0 documented in this encounter Plan of Treatment Not on file documented as of this encounter Visit Diagnoses Diagnosis Rash and nonspecific skin eruption- Primary Rash and other nonspecific skin eruption documented in this encounter Additional Health Concerns Infection Onset Date Last Indicated Resolved Time COVID-19 01/25/2022 01/26/2022 02/15/2022 11:4 1 PM CDT Assessment Noted Time PHQ-9 Depression Total Score: 2 03/22/20 17 9:15 AM CDT documented as of this encounter Care Teams Narrow Gauge Brakeman Relationship Specialty Start Date End Date Dolores Charles PA-C [address] [place] [address] PCP - General Physician Curtain Worker 08/14/13 04/09/18 [place] [address] [place] [address] PCP - General 04/10/18 07/24/18 Brit Stovall GAS GOLF CART REPAIRER [address] [place] [address] PCP - Assigned PCP 10/16/16 08/07/18 Jack Romano PA-C [address] [place] [address] PCP - General Physician Curtain Worker - Medical 07/25/18 Brit Stovall, GAS GOLF CART REPAIRER [address] [place] [address] Assigned PCP 10/16/16 08/18/18 Jack Romano PA-C [address] [place] [address] Assigned PCP 07/29/18 12/21/19 Jack Romano PA-C [address] [address] [place] [address] Assigned PCP 12/22/19 03/20/21 Marisol Rodriguez, SERVANDO Personal Advocate & Liaison (PAL) Family Practice 03/13/20 06/10/20 Jack Romano PA-C 67[address] [address] [address] Assigned PCP 03/21/21 04/17/21 Jack Romano PA-C [address] [address] [place] [address] Assigned PCP 04/18/21 Liana Turner PA-C [address] [place] [address] Physician Curtain Worker 07/17/24 [place] [address] [address] SCHWARTZ, [address] [address] Assigned Musculoskeletal Provider 08/25/24 Liana Turner PA-C [address] [place] [address] Assigned Dermatology Provider 09/25/24 documented as of this encounter
--- OUTSIDE RECORDS SUMMARY | 2025-02-01 16:06 | XMS_ITS | Encounter Summary ---
Author Organization [place] Address [address] [facility] [place] [address] Care Team Providers Care Tax Economist Name Role Phone Jack Romano PA-C Primary Care Provider [phone] Jack Romano PA-C Unavailable [phone] Jack Romano PA-C Unavailable [phone] Jack Romano PA-C Unavailable [phone] Liana Turner-Joby Unavailable [phone] Ryland Mora DO Unavailable [phone] Liana Turner-C Unavailable [phone] Reason for Visit * Reason Onset Date Comments Refill Request 01/22/2021 traZODone (DESYR EL) 50 MG tablet Encounter Details Date Type Department Care Team (Late st Contact Info) Description 01/22/2021 Refill [facility] [address] [place] [address] Jack Romano PA-C [address] [place] [address] Refill Request (traZODone (DESYREL) 50 MG tablet) Social History Tobacco Use Types [...] PM CDT 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 Sarah Newton RN on 01/22/2021 at 1:29 PM documented in this encounter Plan of Treatment Not on file documented as of this encounter Visit Diagnoses Diagnosis Insomnia, unspecified type documented in this encounter Additional Health Concerns Infection Onset Date Last Indicated Resolved Time COVID-19 01/25/2022 01/26/2022 02/15/2022 11:4 1 PM CDT Assessment Noted Time PHQ-9 Depression Total Score: 0 10/28/19 7:03 AM CDT documented as of this encounter Care Teams Tax Economist Relationship Specialty Start Date End Date Jack Romano PA-C [address] [address] [place] [address] PCP - General Physician Operations Welder - Medical 07/25/18 Jack Romano PA-C 19136 [address] [address] Assigned PCP 12/22/19 03/20/21 Jack Romano PA-C [address] [place] [address] Assigned PCP 03/21/21 04/17/21 Jack Romano [place]-C [address] [place] [address] Assigned PCP 04/18/21 Liana Turner PA-C [address] [place] [address] 097580 Physician Operations Welder 07/17/24 [place] [address] [address] SCHWARTZ, [address] 793977 Assigned Musculoskeletal Provider 08/25/24 Liana Turner PA-C [address] [place] [address] 229[address] Assigned Dermatology Provider 09/25/24 documented as of this encounter
--- OUTSIDE RECORDS SUMMARY | 2025-02-01 16:06 | XMS_ITS | Encounter Summary ---
Author Organization [facility] Address [address] [place] [address]. [place] [address] Care Team Providers Care Shed Hand Name Role Phone Jack Romano PA-C Primary Care Provider [phone] Jack Romano PA-C Unavailable [phone] Jack Romano-C Unavailable [phone] Jack Romano-C Unavailable [phone] Liana Turner PA-C Unavailable [phone] Ryland Mora DO Unavailable [phone] Liana Turner PA-C Unavailable [phone] Encounter Details Date Type Department Care Team (Late st Contact Info) Description 11/12/2020 [facility] Advice [address] [address] Jack Romano PA-C [address] [place] [address] Social History Tobacco Use Types [...] PM CDT 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 Gender Identity Female 11/12/2020 12:43 PM CDT [...] documented as of this encounter Care Teams Shed Hand Relationship Specialty Start Date End Date Jack Romano PA-C [address] [address] [place] [address] PCP - General Physician Animal Physiology Teacher - Medical 07/25/18 Jack Romano PA-C 267[address] [address] [address] Assigned PCP 12/22/19 03/20/21 Jack Romano PA-C 405[address] [place] [address] Assigned PCP 03/21/21 04/17/21 Jack Romano PA-C 40678 [place] [address] Assigned PCP 04/18/21 Liana Turner PA-C [address] [place] [address] Physician Animal Physiology Teacher 07/17/24 [place] [address] [address] SCHWARTZ, [address] [address] Assigned Musculoskeletal Provider 08/25/24 Liana Turner PA-C [address] [place] [address] Assigned Dermatology Provider 09/25/24 documented as of this encounter
--- OUTSIDE RECORDS SUMMARY | 2025-02-01 16:06 | XMS_ITS | Encounter Summary ---
Author Organization [facility] Address [address] [place] [address] Care Team Providers Care Rocket Engine Component Mechanic Name Role Phone Jack Romano PA-C Primary Care Provider [phone] Jack Romano PA-C Unavailable [phone] Liana Turner PA-C Unavailable [phone] Ryland Mora DO Unavailable [phone] Liana Turner PA-C Unavailable [phone] Encounter Details Date Type Department Care Team (Late st Contact Info) Description 01/09/2025 [facility] Medical Advice [address] [address] Yokasta Moser Social History Tobacco Use Types Packs/Day Years [...] friends or relatives? 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 Gender Identity Female 11/12/2020 12:43 PM CDT Sexual Orientation Straight 11/12/2020 12 :43 PM CDT Occupation Industry Job Start Date Job End Date Not on file Not on file Not on file Not on file documented as of this encounter Plan of Treatment Not on file documented as of this encounter Visit Diagnoses Not on filedocumented in this encounter Additional Health Concerns Assessment Noted Time PHQ-9 Depression Total Score: 0 12/18/19 10:40 AM CDT documented as of this encounter Care Teams Rocket Engine Component Mechanic Relationship Specialty Start Date End Date Jack Romano PA-C [address] [place] [address] PCP - General Physician Analysis Manager - Medical 07/25/18 Jack Romano PA-C [address] [place] [address] Assigned PCP 04/18/21 Liana Turner PA-C [address] [place] [address] Physician Analysis Manager 07/17/24 [place] [address] [address] [address] Assigned Musculoskeletal Provider 08/25/24 Liana Turner PA-C [address] [place] [address] Assigned Dermatology Provider 09/25/24 documented as of this encounter
--- OUTSIDE RECORDS SUMMARY | 2025-02-01 16:06 | XMS_ITS | Encounter Summary ---
Author Organization [facility] Address [address] [place] [address] Care Team Providers Care Boiler Installer Name Role Phone Jack Romano PA-C Primary Care Provider [phone] Jack Romano PA-C Unavailable [phone] Liana Turner PA-C Unavailable [phone] Ryland Mora DO Unavailable [phone] Liana Turner PA-C Unavailable [phone] Encounter Details Date Type Department Care Team (Late st Contact Info) Description 08/24/2021 [facility] Medical Advice 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 Gender Identity Female 11/12/2020 12:43 PM [...] Time PHQ-9 Depression Total Score: 0 03/31/20 12:00 PM CDT documented as of this encounter Care Teams Boiler Installer Relationship Specialty Start Date End Date Jack Romano PA-C [address] [place] [address] PCP - General Physician Shot Lighter - Medical 07/25/18 Jack Romano PA-C [address] [place] [address] Assigned PCP 04/18/21 Liana Turner PA-C [address] [place] [address] Physician Shot Lighter 07/17/24 [place] [address] [address]WARTZ, [address] [address] Assigned Musculoskeletal Provider 08/25/24 Liana Turner PA-C [address] [place] [address] Assigned Dermatology Provider 09/25/24 documented as of this encounter
--- OUTSIDE RECORDS SUMMARY | 2025-02-01 16:06 | XMS_ITS | Encounter Summary ---
Author Organization [facility] Address [address] [place] [address] Care Team Providers Care Md Allergy Immunology Name Role Phone Dolores Charles PA-C Primary Care Pr ovider [facility] Primary Care Provide r Brit Stovall PAINTER MAINTENANCE Unavailable [phone] Jack Romano PA-C Primary Care Provider [phone] Brit Stovall PAINTER MAINTENANCE Unavailable [phone] Jack Romano PA-C Unavailable [phone] Jack Romano PA-C Unavailable [phone] Marisol Rodriguez RN Unavailable Unavailable Jack Romano PA-C Unavailable [phone] Jack Romano PA-C Unavailable [phone] Liana Turner PA-C Unavailable [phone] Ryland Mora DO Unavailable [phone] Liana Turner PA-C Unavailable [phone] Reason for Visit * Reason Onset Date Comments Evelinhart Communication 11/03/2017 Encounter Details Date Type Department Care Team (Late st Contact Info) Description 11/03/2017 [facility] [address] [place] [address] Brit Stovall NP [place] [address] [place] [address] MyChart Communication Social History Tobacco Use Types [...] PM CDT 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 Gender Identity Female 11/12/2020 12:43 PM [...] documented as of this encounter Care Teams Md Allergy Immunology Relationship Specialty Start Date End Date Dolores Charles PA-C [address] [place] [address] PCP - General Physician Truck Loader 08/14/13 04/09/18 [facility] [address] [place] [address] PCP - General 04/10/18 07/24/18 Brit Stovall PAINTER MAINTENANCE [place] [id number] [place] [address] PCP - Assigned PCP 10/16/16 08/07/18 Jack Romano PA-C [address] [place] [address] PCP - General Physician Truck Loader - Medical 07/25/18 Brit Stovall, PAINTER MAINTENANCE [address] [place] [address] Assigned PCP 10/16/16 08/18/18 Jack Romano PA-C [address] [place] [address] Assigned PCP 07/29/18 12/21/19 Jack Romano PA-C [address] [place] [address] Assigned PCP 12/22/19 03/20/21 Marisol Rodriguez, RN Personal Advocate & Liaison (PAL) Family Practice 03/13/20 06/10/20 Jack Romano PA-C [address] [place] [address] Assigned PCP 03/21/21 04/17/21 Jack Romano PA-C [address] [place] [address] Assigned PCP 04/18/21 Liana Turner PA-C [address] [place] [address] Physician Truck Loader 07/17/24 [place] [address] [address] SCHWARTZ, [address] [address] Assigned Musculoskeletal Provider 08/25/24 Liana Turner PA-C [address] [place] [address] Assigned Dermatology Provider 09/25/24 documented as of this encounter
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
--- OUTSIDE RECORDS SUMMARY | 2025-02-01 16:06 | XMS_ITS | Encounter Summary ---
Author Organization [facility] Address [address] [facility] [place] [address] Care Team Providers Care Trust Manager Assistant Name Role Phone Jack Romano PA-C Primary Care Provider [phone] Jack Romano PA-C Unavailable [phone] Liana Turner PA-C Unavailable [phone] Ryland Mora DO Unavailable [phone] Liana Turner PA-C Unavailable [phone] Reason for Visit * Reason Comments Medication Refill Encounter Details Date Type Department Care Team (Late st Contact Info) Description 07/19/2021 [facility] [address] [place] [address] Jack Romano PA-C [address] [place] [address] Medication Refill Social History Tobacco [...] PM CDT Legal Sex Female 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 EM SUPPORT ANALYST documented in this encounter Plan of Treatment Not on file documented as of this encounter Visit Diagnoses Diagnosis Major depressive disorder, recurrent episode, mild Benign essential hypertension Essential hypertension, benign documented in this encounter Additional Health Concerns Infection Onset Date Last Indicated Resolved Time COVID-19 01/25/2022 01/26/2022 02/15/2022 11:4 1 PM CDT Assessment Noted Time PHQ-9 Depression Total Score: 0 03/31/20 12:00 PM CDT documented as of this encounter Care Teams Trust Manager Assistant Relationship Specialty Start Date End Date Jack Romano PA-C [address] [place] [address] PCP - General Physician Etiquette Coach - Medical 07/25/18 Jack Romano PA-C [address] [place] [address] Assigned PCP 04/18/21 Liana Turner PA-C [address] [place] [address] Physician Etiquette Coach 07/17/24 [place] [address] [address] SCHWARTZ, [address] [address] Assigned Musculoskeletal Provider 08/25/24 Liana Turner PA-C [address] [place] [address] Assigned Dermatology Provider 09/25/24 documented as of this encounter
--- OUTSIDE RECORDS SUMMARY | 2025-02-01 16:06 | XMS_ITS | Encounter Summary ---
Author Organization [facility] Address [address] [place] [address] Care Team Providers Care Grain Receiver Name Role Phone Jack Romano PA-C Primary Care Provider [phone] Jack Romano PA-C Unavailable [phone] Jack Romano PA-C Unavailable [phone] Jack Romano PA-C Unavailable [phone] Liana Turner-Joby Unavailable [phone] Ryland Mora DO Unavailable [phone] Liana Turner-C Unavailable [phone] Reason for Visit * Reason Onset Date Comments Refill Request 10/20/2020 citalopram (ERNESTINE XA) 40 MG tablet Encounter Details Date Type Department Care Team (Late st Contact Info) Description 10/20/2020 Refill [facility] [address] [place] [address] Jack Romano PA-C [address] [place] [address] Refill Request (citalopram (CELEXA) 40 MG tablet) Social History Tobacco Use Types [...] PM CDT 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 Gender Identity Female 11/12/2020 12:43 PM CDT Sexual Orientation Straight 11/12/2020 12 :43 PM CDT Occupation Industry Job Start Date Job End Date Not on file Not on file Not on file Not on file documented as of this encounter Miscellaneous Notes * Telephone Encounter - Annabelle Ng RN - 10/26/2020 11:16 AM CDT PHQ-9 and CEDRICK-7 updated 10/26/2020: PHQ 11/13/2019 03/18/2020 10/26/2020 PHQ-9 Total Score 2 5 0 Q9: Thoughts of better off /self-harm past 2 weeks Not at all Not at all Not at all CEDRICK-7 SCORE 11/13/2019 03/18/2020 10/26/2020 Total Score - - - Total Score - 7 (mild anxiety) 0 (minimal anxiety) Total Score 8 7 0 Annabelle Ng RN * Telephone Encounter - Annabelle Ng RN - 10/23/2020 12:41 PM CDT PHQ-9 and CEDRICK-7 sent to patient to complete via [employer]. Annabelle Ng RN * Telephone Encounter - Jack Romano PA-C - 10/23/2020 8:22 AM CDT Please update PHQ/CEDRICK. I will send in a refill now. Please send PHQ/CEDRICK back to me so I can see it. * Telephone Encounter - Sarah Newton RN - 10/22/2020 8:33 AM CDT citalopram (CELEXA) 40 MG tablet Last Written Prescription Date: 03/19/20 Last Fill Quantity: 90, # refills: 1 Last Office Visit: 06/01/20 Future Office visit: Routing refill request to provider for review/approval because: PHQ-9 greater than 5 Sarah Newton RN on 10/22/2020 at 8:34 AM documented in this encounter Plan of Treatment [...] documented as of this encounter Care Teams Grain Receiver Relationship Specialty Start Date End Date Jack Romano PA-C [address] [address] PCP - General Physician Events Specialist - Medical 07/25/18 Jack Romano PA-C [address] [address] [place] [address] Assigned PCP 12/22/19 03/20/21 Jack Romano PA-C [address] [address] [address] Assigned PCP 03/21/21 04/17/21 Jack Romano PA-C [address] [place] [address] Assigned PCP 04/18/21 Liana Turner PA-C [address] [address] Physician Events Specialist 07/17/24 [place] [address] [address]WARTZ, [address] [address] Assigned Musculoskeletal Provider 08/25/24 Liana Turner PA-C [facility] [address] [place] [address] Assigned Dermatology Provider 09/25/24 documented as of this encounter
--- OUTSIDE RECORDS SUMMARY | 2025-02-01 16:06 | XMS_ITS | Encounter Summary ---
Author Organization [place] Address [address] [facility] [place] [place] [address] Care Team Providers Care Correctional Counselor Name Role Phone Jack Romano PA-C Primary Care Provider [phone] Jack Romano PA-C Unavailable [phone] Liana Turner PA-C Unavailable [phone] Ryland Mora DO Unavailable Liana Turner PA-C Unavailable [phone] Encounter Details Date Type Department Care Team (Late st Contact Info) Description 01/09/2025 Telephone [facility] [address] [place] [address] Jack Romano PA-C [address] [place] [address] Social History Tobacco Use Types [...] friends or relatives? Patient declined 07/08/2024 Attends Mandaeism Services Not on file 07/08 Active Member of Clubs or Organizations Not on f ile 07/08/2024 Attends Club or Organization Meetings Not on jessica e 07/08/2024 Marital Status Not on file 07/08/2024 PHQ-2 Answer Date Recorded PHQ-2 Score 0 12/17/2024 [facility] - Occupational Stress Questionnaire Answer [...] Answer Date Recorded Do you have housing? 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 Questions for provider review: None Yokasta Moser documented in this encounter Plan of Treatment Not on file documented as of this encounter Visit Diagnoses Not on filedocumented in this encounter Additional Health Concerns Assessment Noted Time PHQ-9 Depression Total Score: 0 12/18/19 25 10:40 AM CDT documented as of this encounter Care Teams Correctional Counselor Relationship Specialty Start Date End Date Jack Romano PA-C [address] [address] PCP - General Physician Irrigation Tax Assessor Collector - Medical 07/25/18 Jack Romano PA-C [address]46 [address] 18[address] Assigned PCP 04/18/21 Liana Turner PA-C [address] [place] [address] Physician Irrigation Tax Assessor Collector 07/17/24 [place] [address] [address]ARTZ, [address] [address] Assigned Musculoskeletal Provider 08/25/24 Liana Turner PA-C [address] [place] [address] Assigned Dermatology Provider 09/25/24 documented as of this encounter
--- OUTSIDE RECORDS SUMMARY | 2025-02-01 16:06 | XMS_ITS | Encounter Summary ---
Author Organization [place] Address [address] [place] [address] Care Team Providers Care Security Researcher Name Role Phone Jack Romano PA-C Primary Care Provider [phone] Jack Romano-C Unavailable [phone] Marisol Rodriguez RN Unavailable Unavailable Jack Romano PA-C Unavailable [phone] Jack Romano PA-C Unavailable [phone] Liana Turner PA-C Unavailable [phone] Ryland Mora DO Unavailable [phone] Liana Turner PA-C Unavailable [phone] Reason for Visit * Reason Onset Date Comments Appointment 06/03/2020 Encounter Details Date Type Department Care Team (Late st Contact Info) Description 06/03/2020 [facility] Medical Advice [address] [place] [address] Mare Méndez, RN Appointment Social History Tobacco Use Types Packs/Day Years [...] PM CDT 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 My chart message sent to patient. STANT PROJECT MANAGER documented in this encounter Plan of Treatment Not on file documented as of this encounter Visit Diagnoses Not on filedocumented in this encounter Additional Health Concerns Infection Onset Date Last Indicated Resolved Time COVID-19 01/25/2022 01/26/2022 02/15/2022 11:4 1 PM CDT Assessment Noted Time PHQ-9 Depression Total Score: 5 03/19/20 20 2:07 PM CDT documented as of this encounter Care Teams Security Researcher Relationship Specialty Start Date End Date Jack Romano PA-C [address] [address] PCP - General Physician Engineering Secretary - Medical 07/25/18 Jack Romano PA-C [address]6301 [address] [address] Assigned PCP 12/22/19 03/20/21 Marisol Rodriguez RN Personal Advocate & Liaison (PAL) Family Practice 03/13/20 06/10/20 Jack Romano PA-C [address]2652 [address] [address] Assigned PCP 03/21/21 04/17/21 Jack Romano PA-C [address] [facility] [place] [address] Assigned PCP 04/18/21 Liana Turner PA-C [address] [place] [address] [id number] Physician Engineering Secretary 07/17/24 [place] [address] [address]WARTZ, [address] [address] Assigned Musculoskeletal Provider 08/25/24 Liana Turner PA-C [address] [place] [address] [id number] Assigned Dermatology Provider 09/25/24 documented as of this encounter
--- OUTSIDE RECORDS SUMMARY | 2025-02-01 16:06 | XMS_ITS | Encounter Summary ---
Author Organization [place] Address [address] [facility] [place] [address] Care Team Providers Care Bottom Presser Name Role Phone Jack Romano PA-C Primary Care Provider [phone] Jack Romano PA-C Unavailable [phone] Jack Romano-Joby Unavailable [phone] Liana Turner PA-C Unavailable [phone] Ryland Mora DO Unavailable [phone] Liana Turner PA-C Unavailable [phone] Encounter Details Date Type Department Care Team (Late st Contact Info) Description 03/23/2021 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 documented in this encounter Plan of Treatment Not on file documented as of this encounter Visit Diagnoses Not on filedocumented in this encounter Additional Health Concerns Infection Onset Date Last Indicated Resolved Time COVID-19 01/25/2022 01/26/2022 02/15/2022 11:4 1 PM CDT Assessment Noted Time PHQ-9 Depression Total Score: 0 10/28/19 7:03 AM CDT documented as of this encounter Care Teams Bottom Presser Relationship Specialty Start Date End Date Jack Romano PA-C [address] [address] [address] PCP - General Physician Senior Recruitment Consultant - Medical 07/25/18 Jack Romano PA-C [address] [address] [address] Assigned PCP 03/21/21 04/17/21 Jack Romano PA-C [address] [place] [address] Assigned PCP 04/18/21 Liana Turner PA-C [address] [place] [address] Physician Senior Recruitment Consultant 07/17/24 [place] [address] [address]ARTZ, [address] [address] Assigned Musculoskeletal Provider 08/25/24 Liana Turner PA-C [address] [place] [address] Assigned Dermatology Provider 09/25/24 documented as of this encounter
--- OUTSIDE RECORDS SUMMARY | 2025-02-01 16:06 | XMS_ITS | Encounter Summary ---
Author Organization [place] Address [address] [facility] [place] [address] Care Team Providers Care Tag Writer Name Role Phone Jack Romano-Joby Primary Care Provider [phone] Jack Romano-C Unavailable [phone] Jack Romano-C Unavailable [phone] Jack Romano PA-C Unavailable [phone] Liana Turner PA-C Unavailable [phone] Ryland Mora DO Unavailable [phone] Liana Turner PA-C Unavailable [phone] Encounter Details Date Type Department Care Team (Late st Contact Info) Description 01/25/2021 [facility] Medical Advice [facility] [address] [place] [address] Jack Romano PA-C [address] [place] [address] Social History Tobacco Use Types [...] PM CDT Legal Sex Female 3:44 AM NUTRITIONAL SERVICES HOST Gender Identity Female 11/12/2020 12:43 PM CDT Sexual Orientation Straight 11/12/2020 12 :43 PM CDT Occupation Industry Job Start Date Job End Date Not on file Not on file Not on file Not on file documented as of this encounter Miscellaneous Notes * Telephone Encounter - Darin Pete MA - 01/25/2021 10:27 AM CDT Please see encounter from 01/21/21. Darin Brunner (SERVANDO). documented in this encounter Plan of Treatment Not on file documented as of this encounter Visit Diagnoses Not on filedocumented in this encounter Additional Health Concerns Infection Onset Date Last Indicated Resolved Time COVID-19 01/25/2022 01/26/2022 02/15/2022 11:4 1 PM CDT Assessment Noted Time PHQ-9 Depression Total Score: 0 10/28/19 7:03 AM CDT documented as of this encounter Care Teams Tag Writer Relationship Specialty Start Date End Date Jack Romano PA-C [address] [address] [address] PCP - General Physician Fill Technician - Medical 07/25/18 Jack Romano PA-C 92158 [address] [address] Assigned PCP 12/22/19 03/20/21 Jack Romano PA-C 70938 [address] [address] Assigned PCP 03/21/21 04/17/21 Jack Romano PA-C [address] [place] [address] Assigned PCP 04/18/21 Liana Turner PA-C [address] [address] Physician Fill Technician 07/17/24 [place] [address] [address] SCHWARTZ, [address] [address] Assigned Musculoskeletal Provider 08/25/24 Liana Turner PA-C [address] [place] [address] Assigned Dermatology Provider 09/25/24 documented as of this encounter
--- OUTSIDE RECORDS SUMMARY | 2025-02-01 16:06 | XMS_ITS | Encounter Summary ---
Author Organization [place] Address [address] [place] [address] Care Team Providers Care Manager Recruitment Name Role Phone Dolores Charles PA-C Primary Care Pr ovider [facility] Primary Care Provide r Brit Stovall ROUTE DELIVERY SUPERVISOR Unavailable [phone] Jack Romano PA-C Primary Care Provider [phone] Brit Stovall ROUTE DELIVERY SUPERVISOR Unavailable Jack Romano PA-C Unavailable [phone] Jack Romano PA-C Unavailable [phone] Marisol Rodriguez RN Unavailable Unavailable Jack Romano PA-C Unavailable [phone] Jack Romano PA-C Unavailable [phone] Liana Turner PA-C Unavailable [phone] Ryland Mora DO Unavailable [phone] Liana Turner PA-C Unavailable [phone] Encounter Details Date Type Department Care Team (Late st Contact Info) Description 07/11/2016 [facility] Kirsten [facility] [id number] [place] [address] Jess Lieberman APRN SENIOR COPYWRITER [address] [place] [address] Social History Tobacco Use Types Packs/Day Years Used Date Smoking Tobacco: Every Day Cigarettes 0.5 4 Started: 01/12/2010; Last attempted to quit: 01/12/2014 Smokeless Tobacco: Former Quit: 06/20/2012 Comments:smokes one a day Alcohol Use Standard Drinks/Week Comments Yes 0 (1 standard drink = 0.6 oz pur e alcohol) occ Comments No Sex and Gender Information Value Date Recorded Sex Assigned at Female 11/12/2020 12:43 PM CDT 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 Gender Identity Female 11/12/2020 12:43 PM [...] Noted Time PHQ-9 Depression Total Score: 0 02/26/20 16 7:16 AM CDT documented as of this encounter Care Teams Manager Recruitment Relationship Specialty Start Date End Date Dolores Charles PA-C [address] [place] [address] PCP - General Physician Cma 08/14/13 04/09/18 [facility] [address] [place] [address] PCP - General 04/10/18 07/24/18 Brit Stovall ROUTE DELIVERY SUPERVISOR [facility] [address] [place] [address] PCP - Assigned PCP 10/16/16 08/07/18 Jack Romano PA-C [address] [place] [address] PCP - General Physician Cma - Medical 07/25/18 Brit Stovall, ROUTE DELIVERY SUPERVISOR [address] [place] [address] Assigned PCP 10/16/16 08/18/18 Jack Romano PA-C [address] [place] [address] Assigned PCP 07/29/18 12/21/19 Jack Romano PA-C [address] [place] [address] Assigned PCP 12/22/19 03/20/21 Marisol Rodriguez, RN Personal Advocate & Liaison (PAL) Family Practice 03/13/20 06/10/20 Jack Romano PA-C [address] [place] [address] Assigned PCP 03/21/21 04/17/21 Jack Romano PA-C [address] [place] [address] Assigned PCP 04/18/21 Liana Turner PA-C [address] [place] [address] Physician Cma 07/17/24 [place] [address] [address]ARTZ, [address] [address] Assigned Musculoskeletal Provider 08/25/24 Liana Turner PA-C [address] [place] [address] Assigned Dermatology Provider 09/25/24 documented as of this encounter
--- OUTSIDE RECORDS SUMMARY | 2025-02-01 16:06 | XMS_ITS | Encounter Summary ---
Author Organization [place] Address [address] [facility] [place] [address] Care Team Providers Care Loan Processing Supervisor Name Role Phone Jack Romano PA-C Primary Care Provider [phone] Jack Romano PA-C Unavailable [phone] Liana Turner PA-C Unavailable [phone] Ryland Mora DO Unavailable [phone] Liana Turner PA-C Unavailable [phone] Reason for Visit * Reason Comments Medication Refill Encounter Details Date Type Department Care Team (Late st Contact Info) Description 04/22/2021 [facility] [address] [place] [address] Jack Romano PA-C [address] [place] [address] Medication Refill Social History Tobacco [...] PHQ-2 Answer Date Recorded PHQ-2 Score 0 03/31/2021 Comments No Sex and Gender Information Value Date Recorded Sex Assigned at Female 11/12/2020 12:43 PM CDT Legal Sex Female 3:44 AM EXCHANGE ADMINISTRATOR Gender Identity Female 11/12/2020 12:43 PM CDT [...] have Coronavirus / COVID-19? No / Unsure 04/12/2021 3:58 PM EXCHANGE ADMINISTRATOR documented as of this encounter Miscellaneous Notes * Telephone Encounter - Lorne Reynoso RN - 04/22/2021 2:27 PM CST Patient has upcoming appointment w/ PCP 05/17/21. Routing refill request to provider for review/approval because: A break in medication Lorne Mora RN ANGE ADMINISTRATOR documented in this encounter Plan of Treatment [...] documented as of this encounter Care Teams Loan Processing Supervisor Relationship Specialty Start Date End Date Jack Romano PA-C [address] [address] [address] PCP - General Physician Monkey Trainer - Medical 07/25/18 Jack Romano PA-C [address]3894 [address] [address] Assigned PCP 04/18/21 Liana Turner PA-C [address] [place] [address] Physician Monkey Trainer 07/17/24 [place] [address] [address]Z, [address] [address] Assigned Musculoskeletal Provider 08/25/24 Liana Turner PA-C [address] [place] [address] Assigned Dermatology Provider 09/25/24 documented as of this encounter
--- OUTSIDE RECORDS SUMMARY | 2025-02-01 16:06 | XMS_ITS | Encounter Summary ---
Author Organization [place] Address [address] [place] [address]. [place] [address] Care Team Providers Care Coil Winder Strap Name Role Phone Jack Romano PA-C Primary Care Provider [phone] Jack Romano PA-C Unavailable [phone] Jack Romano-C Unavailable [phone] Jack Romano-C Unavailable [phone] Liana Turner PA-C Unavailable [phone] Ryland Mora DO Unavailable [phone] Liana Turner PA-C Unavailable [phone] Encounter Details Date Type Department Care Team (Late st Contact Info) Description 07/13/2020 [facility] Medical Advice [address] [address] Jack Romano PA-C [address] [place] [address] Social History Tobacco Use Types [...] PM CDT Legal Sex Female 3:44 AM READERS' ADVISORY SERVICE LIBRARIAN Gender Identity Female 11/12/2020 12:43 PM CDT Sexual Orientation Straight 11/12/2020 12 :43 PM CDT Occupation Industry Job Start Date Job End Date Not on file Not on file Not on file Not on file documented as of this encounter Miscellaneous Notes * Telephone Encounter - Shadia Mariano RN - 07/13/2020 4:44 PM READERS' ADVISORY SERVICE LIBRARIAN DAFNE Santiago - see other mychart from 07/13/2020. ERS' ADVISORY SERVICE LIBRARIAN documented in this encounter Plan of Treatment Not on file documented as of this encounter Visit Diagnoses Not on filedocumented in this encounter Additional Health Concerns Infection Onset Date Last Indicated Resolved Time COVID-19 01/25/2022 01/26/2022 02/15/2022 11:4 1 PM CDT Assessment Noted Time PHQ-9 Depression Total Score: 5 03/19/20 20 2:07 PM CDT documented as of this encounter Care Teams Coil Winder Strap Relationship Specialty Start Date End Date Jack Romano PA-C [address] [address] [address] PCP - General Physician Restaurant Crew - Medical 07/25/18 Jack Romano PA-C [address]85 [address] [address] Assigned PCP 12/22/19 03/20/21 Jack Romano PA-C 46906 [address] [address] Assigned PCP 03/21/21 04/17/21 Jack Romano PA-C [address] [address] [place] [address] Assigned PCP 04/18/21 Liana Turner PA-C [address] [place] [address] Physician Restaurant Crew 07/17/24 [place] [address] [address]WARTZ, [address] [address] Assigned Musculoskeletal Provider 08/25/24 Liana Turner PA-C [address] [place] [address] Assigned Dermatology Provider 09/25/24 documented as of this encounter
--- OUTSIDE RECORDS SUMMARY | 2025-02-01 16:06 | XMS_ITS | Encounter Summary ---
Author Organization [place] Address [address] [place] [address] Care Team Providers Care Desizing Machine Operator Name Role Phone Jack Romano-Joby Primary Care Provider [phone] Jack Romano-C Unavailable [phone] Jack Romano-C Unavailable [phone] Jack Romano-C Unavailable [phone] Liana Turner PA-C Unavailable [phone] Ryland Mora DO Unavailable [phone] Liana Turner PA-C Unavailable [phone] Encounter Details Date Type Department Care Team (Late st Contact Info) Description 09/02/2020 [facility] [address] [place] [address] Jack Romano PA-C [address] [place] [address] Social History Tobacco Use Types [...] PM CDT 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 Gender Identity Female 11/12/2020 12:43 PM CDT [...] documented as of this encounter Care Teams Desizing Machine Operator Relationship Specialty Start Date End Date Jack Romano PA-C [address] [address] [address] PCP - General Physician Animal Control Licensing Worker - Medical 07/25/18 Jack Romano PA-C [address]4926 [address] [address] Assigned PCP 12/22/19 03/20/21 Jack Romano PA-C 77409 [address] [address] Assigned PCP 03/21/21 04/17/21 Jack Romano PA-C 84646 [address] [address] Assigned PCP 04/18/21 Liana Turner PA-C [address] [place] [address] Physician Animal Control Licensing Worker 07/17/24 [place] [address] [address] SCHWARTZ, [address] [address] Assigned Musculoskeletal Provider 08/25/24 Liana Turner PA-C [address] [place] [address] Assigned Dermatology Provider 09/25/24 documented as of this encounter
--- OUTSIDE RECORDS SUMMARY | 2025-02-01 16:06 | XMS_ITS | Encounter Summary ---
Author Organization [place] Address [address] [facility] [place] [address] Care Team Providers Care Specialized Developer Name Role Phone Jack Romano PA-C Primary Care Provider [phone] Jack Romano PA-C Unavailable [phone] Jack Romano-Joby Unavailable [phone] Liana Turner PA-C Unavailable [phone] Ryland Mora DO Unavailable [phone] Liana Turner PA-C Unavailable [phone] Reason for Visit * Reason Onset Date Comments MyChart Communication 04/02/2021 Lab result s Encounter Details Date Type Department Care Team (Late st Contact Info) Description 04/02/2021 MyC Medical [facility] [address] [place] [address] Jack Romano PA-C [address] [place] [address] MyChart Communication (Lab results) Social History Tobacco Use Types Packs/Day Years [...] PM CDT Legal Sex Female 3:44 AM TRACTOR DRIVER TEAMSTER Gender Identity Female 11/12/2020 12:43 PM CDT [...] have Coronavirus / COVID-19? No / Unsure 03/31/2021 11:06 AM CDT documented as of this encounter Plan of Treatment Not on file documented as of this encounter Results * Hemoglobin A1c (04/13/2021 12:25 PM TRACTOR DRIVER TEAMSTER) Hemoglobin A1C 5.5 0.0 - 5.6 % 04/13/2021 12:48 PM TRACTOR DRIVER TEAMSTER CR LABORATORY Comment: Normal <5.7% Prediabetes 5.7-6.4% Diabetes 6.5% or higher Note: Adopted from ADA consensus guidelines. Blood STRUCTURE OF RIGHT UPPER LIMB / Unknown Venipuncture / Unknown 04/13/2021 12:25 PM TRACTOR DRIVER TEAMSTER 04/13/2021 12:25 PM TRACTOR DRIVER TEAMSTER us Jack Romano PA-C LAB - BLOOD ORDERABLES Aileen l Result CR LABORATORY [facility] [address] [facility] (no room number, 1st floor of clinic) [place] [address], [facility] [phone] * (ABNORMAL) Comprehensive metabolic panel (BMP + Alb, Alk Phos, ALT, AST, Total. Bili, TP) (04/13/2021 12:25 PM TRACTOR DRIVER TEAMSTER) Sodium 131(L) 133 - 144 mmol/L 04/14/2021 12:35 PM TRACTOR DRIVER TEAMSTER OX LABORATORY Potassium 3.6 3.4 - 5.3 mmol/L 04/14/2021 12:35 PM TRACTOR DRIVER TEAMSTER OX LABORATORY Chloride 94 94 - 109 mmol/L 04/14/2021 12:35 PM TRACTOR DRIVER TEAMSTER OX LABORATORY Carbon Dioxide (CO2) 26 20 - 32 mmol/L 04/14/2021 12:35 PM TRACTOR DRIVER TEAMSTER OX LABORATORY Anion Gap 11 3 - 14 mmol/L 04/14/2021 12:35 PM TRACTOR DRIVER TEAMSTER OX LABORATORY Urea Nitrogen 7 7 - 30 mg/dL 04/14/2021 12:35 PM TRACTOR DRIVER TEAMSTER OX LABORATORY Creatinine 0.58 0.52 - 1.04 mg/dL 04/14/2021 12:35 PM TRACTOR DRIVER TEAMSTER OX LABORATORY Calcium 9.3 8.5 - 10.1 mg/dL 04/14/2021 12:35 PM TRACTOR DRIVER TEAMSTER OX LABORATORY Glucose 100(H) 70 - 99 mg/dL 04/14/2021 12:35 PM TRACTOR DRIVER TEAMSTER OX LABORATORY Alkaline Phosphatase 101 40 - 150 U/L 04/14/2021 12:35 PM TRACTOR DRIVER TEAMSTER OX LABORATORY AST 22 0 - 45 U/L 04/14/2021 12:35 PM TRACTOR DRIVER TEAMSTER OX LABORATORY ALT 33 0 - 50 U/L 04/14/2021 12:35 PM TRACTOR DRIVER TEAMSTER OX LABORATORY Protein Total 7.8 6.8 - 8.8 g/dL 04/14/2021 12:35 PM TRACTOR DRIVER TEAMSTER OX LABORATORY Albumin 4.0 3.4 - 5.0 g/dL 04/14/2021 12:35 PM TRACTOR DRIVER TEAMSTER OX LABORATORY Bilirubin Total 0.5 0.2 - 1.3 mg/dL 04/14/2021 12:35 PM TRACTOR DRIVER TEAMSTER OX LABORATORY GFR Estimate >90 >60 mL/min/1.7 3m2 04/14/2021 12:35 PM TRACTOR DRIVER TEAMSTER OX LABORATORY Comment:As of December 13, 2020, eGFR is calculated by the CKD-EPI creatinine equation, without race adjustment. eGFR can be influenced by muscle mass, exercise, and diet. The reported eGFR is an estimation only and is only applicable if the renal function is stable. Blood STRUCTURE OF RIGHT UPPER LIMB / Unknown Venipuncture / Unknown 04/13/2021 12:25 PM TRACTOR DRIVER TEAMSTER 04/13/2021 12:25 PM TRACTOR DRIVER TEAMSTER us Jack Romano PA-C LAB - BLOOD ORDERABLES Aileen l Result Performing Organization Address City/[facility]/ZIP Co de Phone Number OX LABORATORY [facility] [address] Lab (no room number, 1st floor of clinic) [place] [address], [facility] [phone] * (ABNORMAL) Lipid panel reflex to direct LDL Fasting (04/13/2021 12:25 PM TRACTOR DRIVER TEAMSTER) Cholesterol 228(H) <200 mg/dL 04/14/2021 12:36 PM TRACTOR DRIVER TEAMSTER OX LABORATORY Triglycerides 235(H) <150 mg/dL 04/14/2021 12:36 PM TRACTOR DRIVER TEAMSTER OX LABORATORY Direct Measure HDL 66 >=50 mg/dL 04/14/2021 12:36 PM TRACTOR DRIVER TEAMSTER OX LABORATORY LDL Cholesterol Calculated 115(H) <=100 mg/dL 04/14/2021 12:36 PM TRACTOR DRIVER TEAMSTER OX LABORATORY Non HDL Cholesterol 162(H) <130 mg/dL 04/14/2021 12:36 PM TRACTOR DRIVER TEAMSTER OX LABORATORY Patient Fasting > 8hrs? Yes 04/14/2021 12:36 PM TRACTOR DRIVER TEAMSTER OX LABORATORY Blood STRUCTURE OF RIGHT UPPER LIMB / Unknown Venipuncture / Unknown 04/13/2021 12:25 PM TRACTOR DRIVER TEAMSTER 04/13/2021 12:25 PM TRACTOR DRIVER TEAMSTER Narrative OX LABORATORY - 04/14/2021 12:36 PM TRACTOR DRIVER TEAMSTER Cholesterol Desirable: <200 mg/dL Triglycerides Normal: Less than 150 mg/dL Borderline High: 150-199 mg/dL High: 200-499 mg/dL Very High: Greater than or equal to 500 mg/dL Direct Measure HDL Female: Greater than or equal to 50 mg/dL Male: Greater than or equal to 40 mg/dL LDL Cholesterol Desirable: <100mg/dL Above Desirable: 100-129 mg/dL Borderline High: 130-159 mg/dL High: 160-189 mg/dL Very High: >= 190 mg/dL Non HDL Cholesterol Desirable: 130 mg/dL Above Desirable: 130-159 mg/dL Borderline High: 160-189 mg/dL High: 190-219 mg/dL Very High: Greater than or equal to 220 mg/dL Jack Romano PA-C LAB - BLOOD ORDERABLES Aileen l Result OX [facility] [address] Lab (no room number, 1st floor of clinic) [place] [address], [facility] [phone] documented in this encounter Visit Diagnoses Diagnosis Benign essential hypertension- Primary Essential hypertension, benign Routine general medical examination at a health care facility Elevated blood sugar Other abnormal glucose documented in this encounter Additional Health Concerns Infection Onset Date Last Indicated Resolved Time COVID-19 01/25/2022 01/26/2022 02/15/2022 11:4 1 PM CDT Assessment Noted Time PHQ-9 Depression Total Score: 0 03/31/20 12:00 PM CDT documented as of this encounter Care Teams Specialized Developer Relationship Specialty Start Date End Date Jack Romano PA-C [address] [place] [address] PCP - General Physician Snuff Grinder - Medical 07/25/18 Jack Romano PA-C [address] [place] [address] Assigned PCP 03/21/21 04/17/21 Jack Romano PA-C [address] [place] [address] Assigned PCP 04/18/21 Liana Turner PA-C [address], [place] [address] Physician Snuff Grinder 07/17/24 [place] [address] [place] , [address] [address] Assigned Musculoskeletal Provider 08/25/24 Liana Turner PA-C [address] [place] [address] Assigned Dermatology Provider 09/25/24 documented as of this encounter
--- OUTSIDE RECORDS SUMMARY | 2025-02-01 16:07 | XMS_ITS | Encounter Summary ---
Author Organization [place] Address [facility] [place] [address] Care Team Providers Care Billposting Supervisor Name Role Phone Jack Romano PA-C Primary Care Provider [phone] Jack Romano PA-C Unavailable [phone] Jack Romano PA-C Unavailable [phone] Marisol Rodriguez RN Unavailable Unavailable Jack Romano PA-C Unavailable [phone] Jack Romano PA-C Unavailable [phone] Liana Turner-C Unavailable [phone] Ryland Mora DO Unavailable [phone] Liana Turner-C Unavailable [phone] Reason for Visit * Reason Comments Medication Refill Encounter Details Date Type Department Care Team (Late st Contact Info) Description 11/11/2019 Refill [place] [address] [facility], [address] [place] [address] Jack Romano PA-C [address] [place] [address] Medication Refill Social History Tobacco Use Types Packs/Day Years Used Date Smoking Tobacco: Former Cigarettes 0.5 4 0 07/13/2012 - 07/13/2016 Smokeless Tobacco: Never Comments:smokes one a day Alcohol Use Standard Drinks/Week Comments Yes 0 (1 standard drink = 0.6 oz pur e alcohol) occ PHQ-2 Answer Date Recorded PHQ-2 Score 0 06/12/2018 Comments No Sex and Gender Information Value Date Recorded Sex Assigned at Female 11/12/2020 12:43 PM CDT Legal Sex Female 3:44 AM SPRIGGER Gender Identity Female 11/12/2020 12:43 PM CDT Sexual Orientation Straight 11/12/2020 12 :43 PM CDT Occupation Industry Job Start Date Job End Date Not on file Not on file Not on file Not on file documented as of this encounter Miscellaneous Notes * Telephone Encounter - Miryam Cruz CMA - 11/13/2019 10:47 AM CDT Called patient. PHQ-9 and CEDRICK-7 questions completed. PHQ 04/17/2019 10/02/2019 11/13/2019 PHQ-9 Total Score 0 5 2 Q9: Thoughts of better off /self-harm past 2 weeks Not at all Not at all Not at all CEDRICK-7 SCORE 04/17/2019 10/02/2019 11/13/2019 Total Score - - - Total Score 0 (minimal anxiety) - - Total Score 0 5 8 Patient has a upcoming physical appointment scheduled for 12/11/2019. Miryam Cruz CMA * Telephone Encounter - Miryam Cruz CMA - 11/12/2019 3:41 PM CDT LMOM for the patient to call the clinic back. Miryam Cruz CMA * Telephone Encounter - Jack Romano PA-C - 11/12/2019 3:37 PM CDT We were supposed to do a one month follow up regarding this. See if she will schedule. I will refill but would like to touch base with her. And yes, we need updated CEDRICK/PHQ. Jack * Telephone Encounter - Mare Silva RN - 11/12/2019 8:59 AM CDT Routing refill request to provider for review/approval because: Elevated PHQ-9 Mare Silva RN on 11/12/2019 at 8:59 AM documented in this encounter Plan of Treatment Not on file documented as of this encounter Visit Diagnoses Diagnosis Major depressive disorder, recurrent episode, mild documented in this encounter Additional Health Concerns Infection Onset Date Last Indicated Resolved Time COVID-19 01/25/2022 01/26/2022 02/15/2022 11:4 1 PM CDT Assessment Noted Time PHQ-9 Depression Total Score: 2 11/13/19 10:45 AM CDT documented as of this encounter Care Teams Billposting Supervisor Relationship Specialty Start Date End Date Jack Romano PA-C [address] [address] PCP - General Physician Change Management Manager - Medical 07/25/18 Jack Romano PA-C [address] [address] [address] Assigned PCP 07/29/18 12/21/19 Jack Romano PA-C [address] [address] [address] Assigned PCP 12/22/19 03/20/21 Marisol Rodriguez RN Personal Advocate & Liaison (PAL) Family Practice 03/13/20 06/10/20 Jack Romano PA-C [address] [address] [address] Assigned PCP 03/21/21 04/17/21 Jack Romano PA-C [address] [place] [address] Assigned PCP 04/18/21 Liana Turner PA-C [address] [place] [address] Physician Change Management Manager 07/17/24 [place] [address] [address], [address] [address] Assigned Musculoskeletal Provider 08/25/24 Liana Turner PA-C [address] [place] [address] Assigned Dermatology Provider 09/25/24 documented as of this encounter
--- OUTSIDE RECORDS SUMMARY | 2025-02-01 16:07 | XMS_ITS | Encounter Summary ---
Author Organization [place] Address [address] [place] [address] Care Team Providers Care Order Schedule Clerk Name Role Phone Jack oRmano PA-C Primary Care Provider [phone] Jack Romano PA-C Unavailable [phone] Liana Turner PA-C Unavailable [phone] Ryland Mora DO Unavailable [phone] Liana Turner PA-C Unavailable [phone] Encounter Details Date Type Department Care Team (Late st Contact Info) Description 05/03/2024 [facility] [address] [address] [place] Or[place] Social History Tobacco Use Types Packs/Day [...] PHQ-2 Answer Date Recorded PHQ-2 Score 0 07/04/2023 Adolescent Education Answer Date Record ed Getting School Help Needed Not on file 02/24 Food Insecurity Answer Date Recorded Within the past 12 months, d id you worry that your food would run out before you got money to buy more? No 07/01/2023 Within the past 12 months, d id the food you bought just not last and you didn t have money to get more? No 07/01/2023 Housing Stability Answer Date Recorded Do you have housing? (Cole cooney is defined as stable permanent housing and does not include staying outside in a car, in a tent, in an abandoned building, in an overnight snf, or couch-surfing.) Yes 07/01/2023 Are you worried about losing your housing? No 07/01/2023 Financial Resource Strain Answer Date R ecorded Within the past 12 months, h ave you or your family members you live with been unable to get utilities (heat, electricity) when it was really needed? No 07/01/2023 Transportation Needs Answer Date Record ed Within the past 12 months, h as lack of transportation kept you from medical appointments, getting your medicines, non-medical meetings or appointments, work, or from getting things that you need? No 07/01/2023 Interpersonal Safety Answer Date Record ed Do you feel physically and e motionally safe where you currently live? Yes 07/04/2023 Within the past 12 months, h ave you been hit, slapped, kicked or otherwise physically hurt by someone? No 07/04/2023 Within the past 12 months, h ave you been humiliated or emotionally abused in other ways by your partner or ex-partner? No 07/04/2023 Comments No Sex and Gender Information Value Date Recorded Sex Assigned at Female 11/12/2020 12:43 PM CDT Legal Sex Female 3:44 AM LOW PRESSURE FIRER Gender Identity Female 11/12/2020 12:43 PM CDT [...] Noted Time PHQ-9 Depression Total Score: 0 07/04/19 24 12:33 PM LOW PRESSURE FIRER documented as of this encounter Care Teams Order Schedule Clerk Relationship Specialty Start Date End Date Jack Romano PA-C [address] [place] [address] PCP - General Physician Senior Software Development Manager - Medical 07/25/18 Jack Romano PA-C [address] [address] [address] Assigned PCP 04/18/21 Liana Turner PA-C [address] [place] [address] Physician Senior Software Development Manager 07/17/24 [place] [address] [address], [address] [address] Assigned Musculoskeletal Provider 08/25/24 Liana Turner PA-C [address] [place] [address] Assigned Dermatology Provider 09/25/24 documented as of this encounter
--- OUTSIDE RECORDS SUMMARY | 2025-02-01 16:07 | XMS_ITS | Encounter Summary ---
Author Organization [place] Address [address] [place] [address] Care Team Providers Care Hand Deicer Element Winder Name Role Phone Jack Romano PA-C Primary Care Provider [phone] Jack Romano PA-C Unavailable [phone] Jack Romano PA-C Unavailable [phone] Marisol Rodriguez RN Unavailable Unavailable Jack Romano PA-C Unavailable [phone] Jack Romano PA-C Unavailable [phone] Liana Turner PA-C Unavailable [phone] Ryland Mora DO Unavailable Liana Turner PA-C Unavailable [phone] Encounter Details Date Type Department Care Team (Late st Contact Info) Description 04/17/2019 [facility] Medical Advice [address], [address] [place] [address] Annabelle Ng RN Social History Tobacco Use [...] PM CDT Legal Sex Female 3:[address] ROLLER ENGINEER Gender Identity Female 11/12/2020 12:43 PM CDT [...] Noted Time PHQ-9 Depression Total Score: 0 04/18/20 7:[address] ROLLER ENGINEER documented as of this encounter Care Teams Hand Deicer Element Winder Relationship Specialty Start Date End Date Jack Romano PA-C [address] [address] [address] PCP - General Physician Supervisor Advice - Medical 07/25/18 Jack Romano PA-C [address] [address] [address] Assigned PCP 07/29/18 12/21/19 Jack Romano PA-C [address] [address] [address] Assigned PCP 12/22/19 03/20/21 Marisol Rodriguez, RN Personal Advocate & Liaison (PAL) Family Practice 03/13/20 06/10/20 Jack Romano PA-C [address] [address] [address] Assigned PCP 03/21/21 04/17/21 Jack Romano PA-C [address] [place] [address] Assigned PCP 04/18/21 Liana Turner PA-C [address] [place] [address] Physician Supervisor Advice 07/17/24 [place] [address] [address], [address] [address] Assigned Musculoskeletal Provider 08/25/24 Liana Turner PA-C [address] [place] [address] Assigned Dermatology Provider 09/25/24 documented as of this encounter
--- OUTSIDE RECORDS SUMMARY | 2025-02-01 16:07 | XMS_ITS | Encounter Summary ---
Author Organization [place] Address [address] [place] [address] Care Team Providers Care Blender / Cook Name Role Phone Jack Romano PA-C Primary Care Provider [phone] Jack Romano PA-C Unavailable [phone] Liana Turner PA-C Unavailable [phone] Abby, Ryland DO Unavailable [phone] Liana Turner PA-C Unavailable [phone] Reason for Visit * Reason Onset Date Comments Refill Request 11/13/2023 Encounter Details Date Type Department Care Team (Late st Contact Info) Description 11/13/2023 [facility] [address] [place] [address] Jack Romano PA-C [address] [place] [address] Refill Request Social History Tobacco [...] in an abandoned building, in an overnight fdc, or couch-surfing.) Yes 07/01/2023 Are you worried [...] PM CDT 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 Melissa Alexandre RN on 11/14/2023 at 1:21 PM * Telephone Encounter - Jack Romano PA-C - 11/14/2023 12:51 PM CDT The two creams haven't been filled since 2021 and the lidocaine wouldn't let me sign it so I removed both of those. BP is quite elevated on her chart. #30 days given. Please have her come in for nurse BP check. Jack documented in this encounter Plan of Treatment Not on file documented as of this encounter Visit Diagnoses Diagnosis Vaginal pain Unspecified symptom associated with female genital organs Benign essential hypertension Essential hypertension, benign documented in this encounter Additional Health Concerns Assessment Noted Time PHQ-9 Depression Total Score: 0 07/04/19 24 12:33 PM TEAM TRUCK DRIVER documented as of this encounter Care Teams Blender / Cook Relationship Specialty Start Date End Date Jack Romano PA-C [address] [place] [address] PCP - General Physician Brick Kiln Worker - Medical 07/25/18 Jack Romano PA-C [address] [place] [address] Assigned PCP 04/18/21 Liana Turner PA-C [address] [place] [address] Physician Brick Kiln Worker 07/17/24 [place] [address] [address]Z, [address] [address] Assigned Musculoskeletal Provider 08/25/24 Liana Turner PA-C [address] [address] Assigned Dermatology Provider 09/25/24 documented as of this encounter
--- OUTSIDE RECORDS SUMMARY | 2025-02-01 16:07 | XMS_ITS | Encounter Summary ---
Author Organization [place] Address [address] [facility] [place] [address] Care Team Providers Care Creative Services Specialist Name Role Phone Jack Romano PA-C Primary Care Provider [phone] Jack Romano PA-C Unavailable [phone] Liana Turner PA-C Unavailable [phone] Ryland Mora DO Unavailable [phone] Liana Turner PA-C Unavailable [phone] Reason for Visit * Reason Onset Date Comments Refill Request 08/22/2022 citalopram (ERNESITNE XA) 40 MG tablet Encounter Details Date Type Department Care Team (Late st Contact Info) Description 08/22/2022 Refill [facility] [address] [place] [address] Jack Romano PA-C [address] [place] [address] Refill Request (citalopram (CELEXA) 40 MG tablet) Social History Tobacco Use Types Packs/Day Years Used Date Smoking Tobacco: Former Cigarettes 0.5 4 0 07/13/2012 - 07/13/2016 Passive Smoke Exposure: Never Smokeless Tobacco: Former Quit: 06/20/2012 Comments:i am using quit susan n Alcohol Use Standard Drinks/Week Comments Not Currently 0 (1 standard drink = 0.6 oz pur e alcohol) 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 Ana Maria Levy [place] Wedding Cake Designer * Telephone Encounter - Araseli Santiago RN - 08/30/2022 10:05 AM CDT LMTCB- needs PHQ and CEDRICK Araseli Donnelly RN * Telephone Encounter - Jack Romano PA-C - 08/26/2022 7:27 AM CDT Please call to update PHQ. * Telephone Encounter - Sarah Brooks RN - 08/24/2022 1:06 PM CDT Routing refill request to provider for review/approval because: Failing PHQ9 Sarah Brooks RN documented in this encounter Plan of Treatment Not on file documented as of this encounter Visit Diagnoses Diagnosis Major depressive disorder, recurrent episode, mild documented in this encounter Additional Health Concerns Assessment Noted Time PHQ-9 Depression Total Score: 0 02/16/20 22 2:09 PM CDT documented as of this encounter Care Teams Creative Services Specialist Relationship Specialty Start Date End Date Jack Romano PA-C [address] [place] [address] PCP - General Physician Bath Attendant - Medical 07/25/18 Jack Romano PA-C [address] [place] [address] Assigned PCP 04/18/21 Liana Turner PA-C [address] [place] [address] Physician Bath Attendant 07/17/24 [place] [address] [address] [address] Assigned Musculoskeletal Provider 08/25/24 Liana Turner PA-C [address] [place] [address] Assigned Dermatology Provider 09/25/24 documented as of this encounter
--- OUTSIDE RECORDS SUMMARY | 2025-02-01 16:07 | XMS_ITS | Encounter Summary ---
Author Organization [place] Address [address] [place] [address] Care Team Providers Care Operations Program Manager Name Role Phone Jack Romano PA-C Primary Care Provider [phone] Jack Romano PA-C Unavailable [phone] Liana Turner PA-C Unavailable [phone] Abby, Ryland DO Unavailable [phone] Liana Turner PA-C Unavailable [phone] Reason for Visit * Reason Onset Date Comments Refill Request 09/07/2024 Encounter Details Date Type Department Care Team (Late st Contact Info) Description 09/07/2024 Evelin Cook [facility] [address] [place] [address] Jack Romano PA-C [address] [place] [address] Refill Request Social History Tobacco [...] friends or relatives? Patient declined 07/08/2024 Attends Hindu Services Not on file 07/08 Active Member of Clubs or Organizations Not on f ile 07/08/2024 Attends Club or Organization Meetings Not on jessica e 07/08/2024 Marital Status Not on file 07/08/2024 PHQ-2 Answer Date Recorded PHQ-2 Score 0 07/11/2024 [facility] of Occupat ional Health - Occupational Stress [...] Answer Date Recorded Do you have housing? (Arianain g is defined as stable permanent housing and does not include staying outside in a car, in a tent, in an abandoned building, in an overnight halfway, or couch-surfing.) Yes 07/08/2024 Are you worried [...] PM CDT Legal Sex Female 3:44 AM UTILITY MAINTENANCE WORKER Gender Identity Female 11/12/2020 12:43 PM [...] Noted Time PHQ-9 Depression Total Score: 0 07/11/19 25 9:28 AM UTILITY MAINTENANCE WORKER documented as of this encounter Care Teams Operations Program Manager Relationship Specialty Start Date End Date Jack Romano PA-C [address] [place] [address] PCP - General Physician Rougher Operator - Medical 07/25/18 Jack Romano PA-C [address] [place] [address] Assigned PCP 04/18/21 Liana Turner PA-C [address] [place] [address] [id number] Physician Rougher Operator 07/17/24 [place] [address] [address], [address] [address] Assigned Musculoskeletal Provider 08/25/24 Liana Turner PA-C [facility] [address] [place] [address] Assigned Dermatology Provider 09/25/24 documented as of this encounter
--- OUTSIDE RECORDS SUMMARY | 2025-02-01 16:07 | XMS_ITS | Encounter Summary ---
Author Organization [place] Address [address] [place] [address] Care Team Providers Care Animal Biologist Name Role Phone Jack Romano PA-C Primary Care Provider [phone] Jack Romano PA-C Unavailable [phone] Liana Turner PA-C Unavailable [phone] Ryland Mora DO Unavailable [phone] Liana Turner PA-C Unavailable [phone] Encounter Details Date Type Department Care Team (Late st Contact Info) Description 02/22/2023 [facility] Medical Advice [facility] [address] [place] [address] Jack Romano PA-C [address] [place] [address] Social History Tobacco Use Types [...] PHQ-2 Answer Date Recorded PHQ-2 Score 0 08/30/2022 Adolescent Education Answer Date Record ed Getting School Help Needed Not on file 02/24 Comments No Sex and Gender Information Value Date Recorded Sex Assigned at Female 11/12/2020 12:43 PM CDT 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 Gender Identity Female 11/12/2020 12:43 PM CDT [...] Noted Time PHQ-9 Depression Total Score: 0 08/31/19 11:09 AM CDT documented as of this encounter Care Teams Animal Biologist Relationship Specialty Start Date End Date Jack Romano PA-C [address] [place] [address] PCP - General Physician Planning Lead - Medical 07/25/18 Jack Romano PA-C [address] [place] [address] Assigned PCP 04/18/21 Liana Turner PA-C [address] [place] [address] Physician Planning Lead 07/17/24 [place] [address] [address] [address] Assigned Musculoskeletal Provider 08/25/24 Liana Turner PA-C [address] [place] [address] Assigned Dermatology Provider 09/25/24 documented as of this encounter
--- OUTSIDE RECORDS SUMMARY | 2025-02-01 16:07 | XMS_ITS | Encounter Summary ---
Author Organization [place] Address [facility] [place] [address] Care Team Providers Care Will Call Clerk Name Role Phone Jack Romano PA-C Primary Care Provider [phone] Jack Romano PA-C Unavailable [phone] Jack Romano PA-C Unavailable Marisol Rodriguez RN Unavailable Unavailable Jack Romano PA-C Unavailable [phone] Jack Romano PA-C Unavailable [phone] Liana Turner-C Unavailable [phone] Ryland Mora DO Unavailable [phone] Liana Turner-C Unavailable [phone] Reason for Visit * Reason Comments Medication Refill Encounter Details Date Type Department Care Team (Late st Contact Info) Description 06/05/2019 Refill [place] [id number] [facility], [address] [place] [address] Jack Romano PA-C [address] [place] [address] Medication Refill Social History Tobacco [...] PM CDT Legal Sex Female 3:44 AM ECONOMIC ANALYSIS DIRECTOR Gender Identity Female 11/12/2020 12:43 PM CDT Sexual Orientation Straight 11/12/2020 12 :43 PM CDT Occupation Industry Job Start Date Job End Date Not on file Not on file Not on file Not on file documented as of this encounter Miscellaneous Notes * Telephone Encounter - Tuyet Palencia RN - 06/06/2019 6:33 PM ECONOMIC ANALYSIS DIRECTOR Routing refill request to provider for review/approval because: Drug not on the [facility] refill protocol Last Written Prescription Date: 05/14/19 Last Fill Quantity: 90# refills: 0 Last office visit: 12/20/2018 with prescribing provider: Future Office Visit: Tuyet Palencia RN Flex OMIC ANALYSIS DIRECTOR documented in this encounter Plan of Treatment Not on file documented as of this encounter Visit Diagnoses Diagnosis Back muscle spasm Other symptoms referable to back documented in this encounter Additional Health Concerns Infection Onset Date Last Indicated Resolved Time COVID-19 01/25/2022 01/26/2022 02/15/2022 11:4 1 PM CDT Assessment Noted Time PHQ-9 Depression Total Score: 0 04/18/20 7:04 AM ECONOMIC ANALYSIS DIRECTOR documented as of this encounter Care Teams Will Call Clerk Relationship Specialty Start Date End Date Jack Romano PA-C [address] [address] PCP - General Physician Excavating Supervisor - Medical 07/25/18 Jack Romano PA-C [address] [address] [address] Assigned PCP 07/29/18 12/21/19 Jack Romano PA-C [address] [address] [address] Assigned PCP 12/22/19 03/20/21 Marisol Rodriguez, RN Personal Advocate & Liaison (PAL) Family Practice 03/13/20 06/10/20 Jack Romano PA-C [address] [address] [address] Assigned PCP 03/21/21 04/17/21 Jack Romano PA-C [address] [address] [address] Assigned PCP 04/18/21 Liana Turner PA-C [address] [place] [address] Physician Excavating Supervisor 07/17/24 [place] [address] [address], [address] [address] Assigned Musculoskeletal Provider 08/25/24 Liana Turner PA-C [address] [place] [address] Assigned Dermatology Provider 09/25/24 documented as of this encounter
--- OUTSIDE RECORDS SUMMARY | 2025-02-01 16:07 | XMS_ITS | Encounter Summary ---
Author Organization [place] Address [address] [place] [address] Care Team Providers Care Powder Mill Operator Name Role Phone Jack Romano PA-C Primary Care Provider [phone] Jack Romano PA-C Unavailable [phone] Liana Turner PA-C Unavailable [phone] Ryland Mora DO Unavailable [phone] Liana Turner PA-C Unavailable [phone] Encounter Details Date Type Department Care Team (Late st Contact Info) Description 04/22/2022 [facility] Adv[facility] [address] [address] Zabrina Royal Social History Tobacco Use Types Packs/Day Years [...] PM CDT 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 Gender Identity Female 11/12/2020 12:43 PM CDT [...] documented as of this encounter Care Teams Powder Mill Operator Relationship Specialty Start Date End Date Jack Romano PA-C [address] [place] [address] PCP - General Physician Milk And Cream Grader - Medical 07/25/18 Jack Romano PA-C [address] [address] [address] Assigned PCP 04/18/21 Liana Turner PA-C [address] [place] [address] 607460 Physician Milk And Cream Grader 07/17/24 [place] [address] [address], [address] [address] Assigned Musculoskeletal Provider 08/25/24 Liana Turner PA-C [address] [place] [address] Assigned Dermatology Provider 09/25/24 documented as of this encounter
--- OUTSIDE RECORDS SUMMARY | 2025-02-01 16:07 | XMS_ITS | Encounter Summary ---
Author Organization [place] Address [facility] [place] [address] Care Team Providers Care Print Line Inspector Name Role Phone Jack Romano PA-C Primary Care Provider [phone] Jcak Romano PA-C Unavailable [phone] Jack Romano PA-C Unavailable [phone] Marisol Rodriguez RN Unavailable Unavailable Jack Romano PA-C Unavailable [phone] Jack Roamno PA-C Unavailable [phone] Liana Turner-C Unavailable [phone] Ryland Mora DO Unavailable [phone] Liana Turner-C Unavailable [phone] Reason for Visit * Reason Comments Medication Refill Encounter Details Date Type Department Care Team (Late st Contact Info) Description 12/07/2019 Refill [place] [address] [facility], [address] [place] [address] Jack Romano PA-C [address] [place] [address] Medication Refill Social History Tobacco [...] CDT 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 Mare Silva RN on 12/09/2019 at 10:40 AM documented in this encounter Plan of Treatment Not on file documented as of this encounter Visit Diagnoses Diagnosis Major depressive disorder, recurrent episode, mild documented in this encounter Additional Health Concerns Infection Onset Date Last Indicated Resolved Time COVID-19 01/25/2022 01/26/2022 02/15/2022 11:4 1 PM CDT Assessment Noted Time PHQ-9 Depression Total Score: 2 11/13/19 20 10:45 AM CDT documented as of this encounter Care Teams Print Line Inspector Relationship Specialty Start Date End Date Jack Romano PA-C [address] [address] [address] PCP - General Physician Steel Molder - Medical 07/25/18 Jack Romano PA-C [address] [address] [place] [address] Assigned PCP 07/29/18 12/21/19 Jack Romano PA-C [address] [place] [address] Assigned PCP 12/22/19 03/20/21 Marisol Rodriguez RN Personal Advocate & Liaison (PAL) Family Practice 03/13/20 06/10/20 Jack Romano PA-C [address] [address] [address] Assigned PCP 03/21/21 04/17/21 Jack Romano PA-C [address] [address] [place] [place] [address] Assigned PCP 04/18/21 Liana Turner PA-C [address] [place] [address] Physician Steel Molder 07/17/24 [place] [address] [address], [address] [address] Assigned Musculoskeletal Provider 08/25/24 Liana Turner PA-C [address] [place] [address] Assigned Dermatology Provider 09/25/24 documented as of this encounter
--- OUTSIDE RECORDS SUMMARY | 2025-02-01 16:07 | XMS_ITS | Encounter Summary ---
Author Organization [place] Address [address] [place] [address] Care Team Providers Care Buffet Runner Name Role Phone Jack Romano PA-C Primary Care Provider [phone] Jack Romano PA-C Unavailable [phone] Liana Turner PA-C Unavailable [phone] Ryland Mora DO Unavailable [phone] Liana Turner PA-C Unavailable [phone] Encounter Details Date Type Department Care Team (Late st Contact Info) Description 08/21/2022 MyC Medical Advice [facility] [address] [place] [address] Jakc Romano PA-C [address] [place] [address] Social History Tobacco Use Types [...] PM CDT 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 Gender Identity Female 11/12/2020 12:43 PM CDT [...] documented as of this encounter Care Teams Buffet Runner Relationship Specialty Start Date End Date Jack Romano PA-C [address] [place] [address] PCP - General Physician Assistant Case Manager - Medical 07/25/18 Jack Romano PA-C [address] [place] [address] Assigned PCP 04/18/21 Liana Turner PA-C [address] [place] [address] Physician Assistant Case Manager 07/17/24 [place] [address] [address], [address] [address] Assigned Musculoskeletal Provider 08/25/24 Liana Turner PA-C [address] [place] [address] Assigned Dermatology Provider 09/25/24 documented as of this encounter
--- OUTSIDE RECORDS SUMMARY | 2025-02-01 16:07 | XMS_ITS | Encounter Summary ---
Author Organization [place] Address [address] [place] [address]. [place] [address] Care Team Providers Care Park Ranger Name Role Phone Jack Romano PA-C Primary Care Provider [phone] Jack Romano PA-C Unavailable [phone] Marisol Rodriguez RN Unavailable Unavailable Jack Romano PA-C Unavailable [phone] Jack Romano PA-C Unavailable [phone] Liana Turner-Joby Unavailable [phone] Ryland Mora DO Unavailable [phone] Liana Turner-C Unavailable [phone] Reason for Visit * Reason Comments Medication Refill Encounter Details Date Type Department Care Team (Late st Contact Info) Description 03/10/[address] [id number] Jack Romano PA-C [address] [place] [address] Medication Refill Social History Tobacco [...] PM CDT 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 Pt has refills remaining at pharmacy. Denial sent with note to pharmacy requesting they review and fill medication. Amy Funes RN [facility] -- Triage Nurse documented in this encounter Plan of Treatment [...] documented as of this encounter Care Teams Park Ranger Relationship Specialty Start Date End Date Jack Romano PA-C [address] [address] PCP - General Physician Chief Of Vital Statistics - Medical 07/25/18 Jack Romano PA-C [address] [address] [address] Assigned PCP 12/22/19 03/20/21 Marisol Rodriguez RN Personal Advocate & Liaison (PAL) Family Practice 03/13/20 06/10/20 Jack Romano PA-C [address] [address] [address] Assigned PCP 03/21/21 04/17/21 Jack Romano PA-C [address] [address] [address] Assigned PCP 04/18/21 Liana Turner PA-C [address] [place] [address] Physician Chief Of Vital Statistics 07/17/24 [place] [address] [address], [address] [address] Assigned Musculoskeletal Provider 08/25/24 Liana Turner PA-C [address] [place] [address] 382300 Assigned Dermatology Provider 09/25/24 documented as of this encounter
--- OUTSIDE RECORDS SUMMARY | 2025-02-01 16:07 | XMS_ITS | Encounter Summary ---
Author Organization [place] Address [address] [place] [address] Care Team Providers Care Food Production Supervisor Name Role Phone Jack Romano PA-C Primary Care Provider [phone] Jack Romano PA-C Unavailable [phone] Jack Romano PA-C Unavailable [phone] Marisol Rodriguez RN Unavailable Unavailable Jack RomanoC Unavailable [phone] Jack RomanoC Unavailable [phone] Liana Turner-C Unavailable [phone] Ryland Mora DO Unavailable [phone] Liana Turner PA-C Unavailable [phone] Encounter Details Date Type Department Care Team (Late st Contact Info) Description 10/02/2019 MyC Medical Advice [place] [address] [facility], [address] [place] [address] Jack Romano PA-C [address] [facility] [place] [address] Social History Tobacco Use Types [...] PM CDT Legal Sex Female 3:44 AM MICROFABRICATION ENGINEER MANAGER Gender Identity Female 11/12/2020 12:43 PM [...] have Coronavirus / COVID-19? No / Unsure 10/02/2019 1:18 PM CDT documented as of this encounter Plan of Treatment Not on file documented as of this encounter Visit Diagnoses Not on filedocumented in this encounter Additional Health Concerns Infection Onset Date Last Indicated Resolved Time COVID-19 01/25/2022 01/26/2022 02/15/2022 11:4 1 PM CDT Assessment Noted Time PHQ-9 Depression Total Score: 5 10/02/19 20 1:27 PM CDT documented as of this encounter Care Teams Food Production Supervisor Relationship Specialty Start Date End Date Jack Romano PA-C [address] [address] [address] PCP - General Physician Header Operator - Medical 07/25/18 Jack Romano PA-C [address] [address] [address] Assigned PCP 07/29/18 12/21/19 Jack Romano PA-C [address] [address] [address] Assigned PCP 12/22/19 03/20/21 Marisol Rodriguez RN Personal Advocate & Liaison (PAL) Family Practice 03/13/20 06/10/20 Jack Romano PA-C [address] [place] [address] Assigned PCP 03/21/21 04/17/21 Jack Romano PA-C [address] [address] [address] [address] Assigned PCP 04/18/21 Liana Turner PA-C [address] [place] [address] Physician Header Operator 07/17/24 [place] [address] [address], [address] [address] Assigned Musculoskeletal Provider 08/25/24 Liana Turner PA-C [address] [place] [address] 830660 Assigned Dermatology Provider 09/25/24 documented as of this encounter
--- OUTSIDE RECORDS SUMMARY | 2025-02-01 16:07 | XMS_ITS | Encounter Summary ---
Author Organization [place] Address [address] [place] [address]. [place] [address] Care Team Providers Care Assessment Expert Name Role Phone Jack Romano PA-C Primary Care Provider [phone] Jack Romano PA-C Unavailable [phone] Liana Turner PA-C Unavailable [phone] Abby, Ryland DO Unavailable [phone] Liana Turner PA-C Unavailable [phone] Reason for Visit * Reason Onset Date Comments MyChart Communication 09/03/2023 Oil glands Encounter Details Date Type Department Care Team (Late st Contact Info) Description 09/03/2023 [facility] [address] [place] [address] Jack Romano PA-C [address] [place] [address] MyChart Communication (Oil glands) Social History Tobacco Use Types Packs/Day Years [...] in an abandoned building, in an overnight long term, or couch-surfing.) Yes 07/01/2023 Are you worried [...] PM CDT Legal Sex Female 3:44 AM REGULATORY AFFAIRS PORTFOLIO LEADER Gender Identity Female 11/12/2020 12:43 PM CDT [...] Total Score: 0 07/04/19 24 12:33 PM REGULATORY AFFAIRS PORTFOLIO LEADER documented as of this encounter Care Teams Assessment Expert Relationship Specialty Start Date End Date Jack Romano PA-C [address] [place] [address] PCP - General Physician Supply Requirements Officer - Medical 07/25/18 Jack Romano PA-C [address] [facility] [address] Assigned PCP 04/18/21 Liana Turner PA-C [address] [place] [address] Physician Supply Requirements Officer 07/17/24 [place] [address] [address], [address] [address] Assigned Musculoskeletal Provider 08/25/24 Liana Turner PA-C [address] [place] [address] Assigned Dermatology Provider 09/25/24 documented as of this encounter
--- OUTSIDE RECORDS SUMMARY | 2025-02-01 16:07 | XMS_ITS | Encounter Summary ---
Author Organization [facility] Address [address] [place] [address] Care Team Providers Care Handkerchief Folder Name Role Phone Jack Romano PA-C Primary Care Provider [phone] Jack Romano PA-C Unavailable [phone] Jack Romano-C Unavailable [phone] Marisol Rodriguez RN Unavailable Unavailable Jack Romano-C Unavailable [phone] Jack Romano-C Unavailable [phone] Liana Turner PA-C Unavailable [phone] Ryland Mora DO Unavailable [phone] Liana Turner PA-C Unavailable [phone] Reason for Visit * Reason Onset Date Comments MyChart Communication 06/17/2019 Encounter Details Date Type Department Care Team (Late st Contact Info) Description 06/17/2019 [facility] [address] [facility], [address] [place] [address] Jack Romano PA-C [address] [place] [address] MyChart Communication Social History Tobacco [...] PM CDT Legal Sex Female 3:44 AM HAND WOVEN CARPET AND RUG MENDER Gender Identity Female 11/12/2020 12:43 PM CDT Sexual Orientation Straight 11/12/2020 12 :43 PM CDT Occupation Industry Job Start Date Job End Date Not on file Not on file Not on file Not on file documented as of this encounter Miscellaneous Notes * Telephone Encounter - Jack Romano PA-C - 06/18/2019 4:41 PM HAND WOVEN CARPET AND RUG MENDER Amy- Thank you SO much. I think she needed this. And I did also. This has all been so pieced together. I am thankful that you called her and put this message together for me. I was going to pop back and talk to you this afternoon and I didn't get time. Again, thank you. Sometimes all they need is a little extra attention :-) PS: I'm not sure how the sciatic concern came into all of this.....but I guess I will find out. Jack WOVEN CARPET AND RUG MENDER * Telephone Encounter - Amy Funes RN - 06/18/2019 2:16 PM HAND WOVEN CARPET AND RUG MENDER Jack: I spoke with the Pt. She did receive the Mychart message and stated she understood the message and did not have questions. She did cloth picker the Flagyl, and started taking it last night. She does not feel her back pain is related to the vaginal issue, she has concerns for her sciatic nerve. States she has already been to UC and ER for this, does not want to go back. She is rating her pain in her back at an 8/10, at rest. I advised pain this severe should be assessed in the ER. She declined to go in. I was able to find a spot with you next Monday for a 40 minuteslot, I did schedule her there. Nothing with any FM provider left this week. Cannot schedule with asa day at as they only see acute visits for 20 minute slots. She declined UC as well. She reports she is comfortable waiting until next Monday to see you. No further questions. Amy Funes RN -- [employer] WOVEN CARPET AND RUG MENDER * Telephone Encounter - Jack Romano PA-C - 06/18/2019 1:24 PM HAND WOVEN CARPET AND RUG MENDER This patient simply needs to seen. At this point if she continues with pain and needs that addressed let's get her in [facility] with anyone. Please still make a follow up ED visit (40 minutes) with me. Next week is fine. What I don't want is for Brigitte to make this appointment as I think Chrissie may have questions or needs addressed right now. I also don't like that my message yesterday was copied and pasted directly to the patient. This wasnot appropriate. She should have been called. I want to know if she received the Flagyl Rx and has been taking it. She would not understand my message that included lab results and some abbreviationsthat was sent right to her. Jack Zhang WOVEN CARPET AND RUG MENDER * Telephone Encounter - Amy Funes RN - 06/18/2019 8:42 AM HAND WOVEN CARPET AND RUG MENDER PCP: Please advise on scheduling. You have no 40 minute slots anytime this week, nor next Monday. Pleaseadvise on scheduling options, please have TC call the Pt to schedule. Thanks! Amy Funes RN -- [employer] WOVEN CARPET AND RUG MENDER * Telephone Encounter - Jack Romano PA-C - 06/18/2019 7:59 AM HAND WOVEN CARPET AND RUG MENDER Does she have a follow up appointment yet? Whit was handling this yesterday. I think we need to call her to get her an appointment please. She needs to get in for follow up. I'm not going to give her anything for pain other than to recommend tylenol alternating with ibuprofen OTC. Though I think she is a former bypass patient so NSAIDs may not be an option. If pain is an immediate or acute concern she needs to go to . Jack WOVEN CARPET AND RUG MENDER documented in this encounter Plan of Treatment Not on file documented as of this encounter Visit Diagnoses Not on filedocumented in this encounter Additional Health Concerns Infection Onset Date Last Indicated Resolved Time COVID-19 01/25/2022 01/26/2022 02/15/2022 11:4 1 PM CDT Assessment Noted Time PHQ-9 Depression Total Score: 0 04/18/20 7:04 AM HAND WOVEN CARPET AND RUG MENDER documented as of this encounter Care Teams Handkerchief Folder Relationship Specialty Start Date End Date Jack Romano PA-C [address] [address] [address] PCP - General Physician Sleeve Fixer - Medical 07/25/18 Jack Romano PA-C [address] [address] [address] Assigned PCP 07/29/18 12/21/19 Jack Romano PA-C [address] [address] [address] Assigned PCP 12/22/19 03/20/21 Marisol Rodriguez, RN Personal Advocate & Liaison (PAL) Family Practice 03/13/20 06/10/20 Jack Romano PA-C [address] [address] [place] [address] Assigned PCP 03/21/21 04/17/21 Jack Romano [facility]-C [address] [facility] [place] [address] Assigned PCP 04/18/21 Liana Turner PA-C [address] [place] [address] Physician Sleeve Fixer 07/17/24 [place] [address] [address], [address] [address] Assigned Musculoskeletal Provider 08/25/24 Liana Turner PA-C [address] [place] [id number] Assigned Dermatology Provider 09/25/24 documented as of this encounter
--- OUTSIDE RECORDS SUMMARY | 2025-02-01 16:07 | XMS_ITS | Encounter Summary ---
Author Organization [facility] Address [address] [facility] [place] [address] Care Team Providers Care Delivery Architect Name Role Phone Jack Romano PA-C Primary Care Provider [phone] Jack Romano PA-C Unavailable [phone] Liana Turner PA-C Unavailable [phone] Ryland Mora DO Unavailable [phone] Liana Turner PA-C Unavailable [phone] Reason for Visit * Reason Comments Medication Refill Encounter Details Date Type Department Care Team (Late st Contact Info) Description 04/29/2022 [facility] [address] [place] [address] Jack Romano PA-C [address] [place] [address] Medication Refill Social History Tobacco [...] PM CDT 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 Gender Identity Female 11/12/2020 12:43 PM CDT Sexual Orientation Straight 11/12/2020 12 :43 PM CDT Occupation Industry Job Start Date Job End Date Not on file Not on file Not on file Not on file documented as of this encounter Miscellaneous Notes * Telephone Encounter - Jackie Calles RN - 04/29/2022 4:07 PM ENDOSCOPY SPECIALTY TECHNICIAN Next 5 appointments (look out 90 days) May 18, 2022 9:00 AM (Arrive by 8:40 AM) Adult Preventative Visit with Jack Romano PA-C [facility] ([facility] [address] [facility] [id number] Prescription approved per [facility] Refill Protocol. Jackie Calles RN SCOPY SPECIALTY TECHNICIAN documented in this encounter Plan of Treatment Not on file documented as of this encounter Visit Diagnoses Diagnosis Benign essential hypertension Essential hypertension, benign documented in this encounter Additional Health Concerns Assessment Noted Time PHQ-9 Depression Total Score: 0 02/16/20 22 2:09 PM CDT documented as of this encounter Care Teams Delivery Architect Relationship Specialty Start Date End Date Jack Romano PA-C [address] [place] [address] PCP - General Physician Dining Server - Medical 07/25/18 Jack Romano PA-C [address] [place] [address] Assigned PCP 04/18/21 Liana Turner PA-C [address] [place] [address] Physician Dining Server 07/17/24 [place] [address] [address], [address] [address] Assigned Musculoskeletal Provider 08/25/24 Liana Turner PA-C [address], [place] [address] Assigned Dermatology Provider 09/25/24 documented as of this encounter
--- OUTSIDE RECORDS SUMMARY | 2025-02-01 16:07 | XMS_ITS | Encounter Summary ---
Author Organization [facility] Address [address] [place] [address] Care Team Providers Care Paper Cutter Operator Name Role Phone Jack Romano PA-C Primary Care Provider [phone] Jack Romano PA-C Unavailable [phone] Liana Turner PA-C Unavailable [phone] Ryland Mora DO Unavailable [phone] Liana Turner PA-C Unavailable [phone] Encounter Details Date Type Department Care Team (Late st Contact Info) Description 08/30/2022 [facility] [address] [address] Ana Maria Levy Social History Tobacco Use Types Packs/Day Years [...] Answer Date Recorded PHQ-2 Score 0 08/30/2022 Comments No Sex and Gender Information Value Date Recorded Sex Assigned at Female 11/12/2020 12:43 PM CDT 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 Gender Identity Female 11/12/2020 12:43 PM CDT [...] documented as of this encounter Care Teams Paper Cutter Operator Relationship Specialty Start Date End Date Jack Romano PA-C [address] [place] [address] PCP - General Physician Ac/Dc Rewinder - Medical 07/25/18 Jack Romano PA-C [address] [place] [address] Assigned PCP 04/18/21 Liana Turner PA-C [address] [place] [address] Physician Ac/Dc Rewinder 07/17/24 [place] [address] [address]Z, [address] [address] Assigned Musculoskeletal Provider 08/25/24 Liana Turner PA-C [address] [place] [address] Assigned Dermatology Provider 09/25/24 documented as of this encounter
[2025-02-01 16:11] VITALS: BP 180/105; PULSE 67; RESP 18; TEMP 36.7; O2SAT 99; BMI 29.3
--- NOTE | 2025-02-01 16:49 | CRLHL7_ITS ---
For Patients: As a result of the Cures Act, medical imaging exams and procedure reports are released immediately into your electronic medical record. You may view this report before your referring provider. If you have questions, please contact your health care provider. INDICATION: Injury COMPARISON: None. TECHNIQUE: Three radiographic view(s) of the right ankle. FINDINGS: No evident acute displaced fracture. No substantial degenerative change. A tiny osseous excrescence at the dorsal aspect of the talar neck may be due to old trauma. Small plantar and tiny posterior calcaneal enthesophyte. IMPRESSION: No acute osseous findings. Dictated by Edson Gloria MD @ 02/01/2025 5:42:58 PM (Electronically Signed)
--- NOTE | 2025-02-01 16:50 | ED.LOWEXIN ---
HPI - Extremity Injury (Lower) General Chief Complaint: Extremity Pain/Injury, Lower Stated Complaint: Broken Right Ankle Time Seen by Provider: 02/01/25 16:08 History of Present Illness HPI Narrative: This 54-year-old female comes in with an injury to her right ankle. Last evening she misstepped when ambulating on some steps and rolled her ankle. She did ambulate on this since then but her pain is worsened. She has significant swelling on the lateral aspect of her right ankle. She does not describe any other injury. Related Data Home Medications ?Medication ?Instructions ?Recorded ?Confirmed citalopram 40 mg tablet 40 mg PO DAILY 02/01/25 02/01/25 lisinopril 20 mg tablet 20 mg PO QAM 02/01/25 02/01/25 tizanidine 4 mg tablet 4 mg PO 3XD 02/01/25 02/01/25 trazodone 50 mg tablet 50 mg PO QPM 02/01/25 02/01/25 Allergies Allergy/AdvReac Type Severity Reaction Status Date / Time Penicillins Allergy Severe Verified 02/01/25 16:15 codeine AdvReac Intermediate Verified 02/01/25 16:15 Review of Systems Status of ROS: Reports: 10 or more systems reviewed and unremarkable except as noted in History and below Narrative: Constitutional: No fevers, no weight gain or loss. Eyes: No discharge. No vision changes. HENT: No congestion, no sore throat, no ear pain. Cardiovascular: No chest pain, no palpitations. Respiratory: No shortness of breath, no wheezes, no cough. Gastrointestinal: No abdominal pain, no vomiting, no diarrhea. Genitourinary: No dysuria, no hematuria. Musculoskeletal: Right ankle injury as described above. Skin: No rashes, no pruritis. Neurological: No dizziness, weakness, sensory change, speech change. Endo/Heme/Allergies: No bruising or bleeding. No polydipsia. Pysch: no suicidality, no anxiety, no insomnia. All other systems reviewed and are negative. Exam Narrative: Exam Narrative: Constitutional: Well-developed, well-nourished, no acute distress. HEENT: Normocephalic, atraumatic. Neck: Normal range of motion. Nontender. Supple. Heart: Regular. No murmurs. Normal rate. Intact distal pulses. Lungs: Clear to auscultation. No chest discomfort. No wheezes, rhonchi, or rales. Abdomen: Normal bowel sounds. Nontender. No rebound tenderness. Genitalia: Deferred. Back: No midline tenderness. Normal range of motion. Extremities: Swelling over the lateral malleolus of the right ankle. No joint effusion. No ligament instability. Skin: Intact. No rash. Warm. No erythema or pallor. Neurologic: No altered sensation. No weakness. Alert and oriented. Psychiatric: No suicidality. No anxiety or depression. No insomnia. Nursing notes and vitals signs are reviewed. Const: Vital Signs, click to edit/add: Vital Signs - 24 hr 02/01/25 16:11 Temperature 98.1 F Pulse Rate [Right Pulse Oximeter] 67 Respiratory Rate 18 Blood Pressure [Ri ght Upper Arm] 180/105 H Pulse Oximetry 99 Oxygen Delivery Me thod Room Air Course Vital Signs Vital signs: Initial Vital Signs Temperature 98.1 F 02/01/25 16:11 Temperature Source Temporal Artery Scan 02/01/25 16:11 Pulse Rate 67 02/01/25 16:11 Pulse Rhythm Regular 02/01/25 16:11 Pulse Strength 3+ Normal 02/01/25 16:11 Respiratory Rate 18 02/01/25 16:11 Blood Pressure 180/105 H 02/01/25 16:11 Blood Pressure Mean 130 H 02/01/25 16:11 Blood Pressure Position Sitting 02/01/25 16:11 Pulse Oximetry 99 02/01/25 16:11 Oxygen Delivery Method Room Air 02/01/25 16:11 Vital Signs Temperature 98.1 F 02/01/25 16:11 Pulse Rate 67 02/01/25 16:11 Respiratory Rate 18 02/01/25 16:11 Blood Pressure 180/105 H 02/01/25 16:11 Pulse Oximetry 99 02/01/25 16:11 Oxygen Delivery Method Room Air 02/01/25 16:11 Temperature 98.1 F 02/01/25 16:11 Pulse Rate 67 02/01/25 16:11 Respiratory Rate 18 02/01/25 16:11 Blood Pressure 180/105 H 02/01/25 16:11 Pulse Oximetry 99 02/01/25 16:11 Oxygen Delivery Method Room Air 02/01/25 16:11 MDM - Extremity Injury (Lower) MDM Narrative Medical decision making narrative: This patient comes in with an injury to her right ankle as described above. X-ray images by my review and according to radiology report show no sign of fracture or dislocation. She has a right ankle sprain and is able to ambulate. I did offer crutches which the patient declined. She states that she has crutches that she can use at home if needed. She did receive an Saman wrap and and Instym[facility] prescription for Toradol. I encouraged her to rest briefly and then increase activity as tolerated. Imaging Data XR R Ankle: Radiologist's impression: No acute osseous findings. Discharge Plan Discharge Clinical Impression: Ankle sprain and strain Patient Disposition: Home, Self-Care Condition: Stable Additional Instructions: Use crutches as needed. Take medication also as needed and directed. Increase activity as tolerated. Follow up with MD return if worsening. Prescriptions: No Action citalopram 40 mg tablet 40 mg PO DAILY trazodone 50 mg tablet 50 mg PO QPM tizanidine 4 mg tablet 4 mg PO 3XD lisinopril 20 mg tablet 20 mg PO QAM Follow Up/Referrals: Provider,Not a Local [Primary Care Provider, Family Practice] Stand Alone Forms: [employer] Info Instructions
--- OUTSIDE RECORDS SUMMARY | 2025-02-01 17:42 | XMS_ITS | Clinical Summary ---
Author Organization [facility] Address [address] [place] [address] Care Team Providers Care Bicycle Service Technician Name Role Phone Teofilo Adam MD Primary Care Provider Unava ilable Allergies Active Allergy Reactions Criticality Noted Date Comments Penicillins Hives,Shortness Of Breath High 6 Homeopathic Products 06/01/2006 Medications MULTI-VITAMIN TAB take 1 tablet by oral route once daily with food 0 Active IRON 18 MG TAB None Entered 0 Ac tive CALCIUM CITRATE 1,000 MG TAB None Entered 0 Acti ve IBUPROFEN 800 MG TAB take 1 tablet (800 mg) by oral route 3 times per day with food 30 0 09/08/2007 Active citalopram (CELEXA) 20 mg tablet Take 1 tablet by mouth once daily. 0 12/09/2013 Active cyanocobalamin (VITAMIN B-12) 100 mcg tablet Take by mouth once daily. 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 Gender Identity Not on file Sexual Orientation Not on file Obstetrics History Last Filed Vital Signs Vital Sign Reading Time Taken Comments Blood Pressure 128/86 08/25/2014 6:24 PM CDT Pulse 74 08/25/2014 6:24 PM CDT Temperature 36.7 C (98.1 F) 08/25/2014 6:24 PM CDT Respiratory Rate 18 01/30/2014 4:39 PM CDT Oxygen Saturation 96% 08/25/2014 6:24 PM CDT Inhaled Oxygen Concentration - - Weight 75.8 kg (167 lb) 08/25/2014 6:24 PM CDT Height 152.4 cm (5') 08/25/2014 6:24 PM CDT Body Mass Index 32.62 08/25/2014 6:24 PM CDT Plan of Treatment Health Maintenance Due Date Last Done Comments Tetanus booster 08/21/1983 Depression screening for age 12+ 1984 HIV for age 15-65 08/21/1987 BMI (ht and wt on same day) for age 18+ 1990 Hepatitis C screening for age 18-79 1990 Hepatitis B series for 19+ (1 of 3 - 19+ 3-dose series ) 08/21/1991 Pap test for age 21-65 1993 Colonoscopy through age 75 2017 Lipids for age 45-75 2017 Mammogram for age 45-75 2017 Pneumococcal series for age 50+ (1 of 1 - PCV) 023 Zoster (shingles) series for age 50+ (1 of 2) 08/21/19 23 COVID-19 vaccine series ( - season) 4 Influenza Vaccine (#1) 2025 Care Teams Bicycle Service Technician Relationship Specialty Start Date End Date Teofilo Adam MD PCP - General 05/15/06
== END 2025-02-01 18:18 | disposition home or self-care (01) ==
PROVIDERS: Emergency Provider Emergency Medicine Emergency Medical Services
DX: S93.401A Sprain of unspecified ligament of right ankle, initial encounter (principal); W18.49XA Other slipping, tripping and stumbling without falling, initial encounter
CPT/HCPCS: 73610; 99283; 99284